=== PATIENT | female | born 1950 | race Caucasian/White ===

== ENCOUNTER → 2017-01-03 | Outpatient (CLI) | payer MEDICAID, BC ==
--- NOTE | 2017-01-03 22:31 | WWHP ---
DATE OF SERVICE: 01/03/2017 CHIEF COMPLAINT: The patient is here for her routine gynecologic exam and mammogram. HPI: This is a 66-year-old, G2, P2 with an LMP of 2000. She is without gynecologic complaints and denies any postmenopausal bleeding. 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 PAST MEDICAL HISTORY: Chronic hypertension, seasonal allergies. MEDICATIONS: 1. Losartan 25 mg daily. 2. Zyrtec p.r.n. 3. Viactiv calcium supplements two daily. 4. Vitamin D3 1000 units daily. ALLERGIES: No known drug allergies. PAST SURGICAL HISTORY: sections in 1974 and 1979, tubal ligation in 1980. Past OB history: 2 sections. 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 SOCIAL HISTORY: She denies tobacco and drug use and has about 2 alcoholic drinks per month. She has been since 1971. 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 FAMILY HISTORY: Grandmother has diabetes. There is no known family history of cancer of the breast, uterus, ovaries or colon. REVIEW OF SYSTEMS: Weight has been stable. She denies respiratory, cardiac, or GI problems. PHYSICAL EXAM: Blood pressure 141/84. Height 5 feet 1 inch. Weight 132 pounds. Temperature 98.0, pulse 76. This a well-developed, well-nourished white female who is alert and oriented x3 in no acute distress. HEENT is within normal limits. NECK: Supple without mass or thyromegaly. CHEST AND LUNGS: Clear to auscultation. HEART: Regular rate and rhythm. Breasts are without mass or discharge. There is central nipple inversion on the left side and she states it has been this way most of her life. Axillary exam is negative for adenopathy. BACK: Negative for CVA tenderness. ABDOMEN: Soft, nontender, without palpable masses. PELVIC EXAM: External genitalia reveals mild to moderate atrophy without lesions. Cervix and vagina reveal mild to moderate atrophy without lesions. There is no evidence of prolapse. The uterus is midposition, nongravid size and nontender. There are no palpable adnexal masses or tenderness. Rectovaginal exam negative for mass or tenderness and is negative for occult blood. EXTREMITIES: Nontender. IMPRESSION: A 66-year-old menopausal female with normal gynecologic exam. PLAN: 1. Pap smear was performed. 2. Self-breast examination was discussed. 3. Mammogram will be done today. 4. Osteoporosis prevention was discussed. I have recommended bone density testing and she would like to do this next year. 5. I have recommended screening colonoscopy based on her age and she states she will look into doing this. 6. She will return in one year.
--- NOTE | 2017-01-04 11:57 | MM ---
Reason for exam: screening (asymptomatic). Last mammogram was performed 5 years and 2 months ago. History: Patient is postmenopausal. Physical Findings: A clinical breast exam by your physician is recommended on an annual basis and results should be correlated with mammographic findings. MG 3D Screening Mammo W/Cad Bilateral CC and MLO view(s) were taken. Prior study comparison: October 21, 2011, bilateral digital screening mammo w/CAD. January 08, 2009, bilateral digital screening mammogram. The breast tissue is heterogeneously dense. This may lower the sensitivity of mammography. Finding: There are typically benign round calcifications. No significant changes in finding since October 21, 2011 and January 08, 2009. ASSESSMENT: Benign, BI-RAD 2 RECOMMENDATION: Routine screening mammogram of both breasts in 1 year.
--- NOTE | 2017-01-10 21:19 | LTR ---
January 10, 2017 RE: Justyna Burnett Emigdio Dear Dr. Osuna: I had the pleasure seeing your patient Justyna Burnett in the office on 01/03/2017. As you know she is a menopausal 66-year-old female who presented for her routine gynecologic exam. Her gynecologic exam was unremarkable. Her Pap smear was negative and her mammogram was benign. Thank you for allowing me to participate in the care of your patient. Please do not hesitate to call if you have any questions. Sincerely, TANI SEE
== END | disposition home or self-care (01) ==
LOC: WWCWWP 12:52
PROVIDERS: ATTEND Obstetrics & Gynecology
DX: Z12.31 Encounter for screening mammogram for malignant neoplasm of breast (principal)
CPT/HCPCS: 77063; G0202

== ENCOUNTER 2017-05-07 14:39 | Emergency (ER) | payer BC, MEDICAID, MEDICARE ==
[2017-05-07 15:06] VITALS: TEMP 98.1
[2017-05-07] MEDS ORDERED: HYDROmorphone 1 MG/ML 1 ML SYRINGE IM STA (15:58)
[2017-05-07] MEDS ORDERED: HYDROCORTISONE SUPPOSITORY 25 MG SUPP RECTAL STA (15:59)
--- NOTE | 2017-05-07 16:14 | ED ---
General Adult HPI - General Chief complaint: Recheck/Abnormal Lab/Rx Stated complaint: hemorroids Time Seen by Provider: 05/07/17 15:45 Source: patient, RN notes reviewed Mode of arrival: ambulatory Limitations: no limitations - History of Present Illness Initial comments: 67-year-old female presents to emergency Department chief complaint of hemorrhoid pain. Patient states that she had a hemorrhoid banded on Monday and today she woke up with pain. Patient states she is very uncomfortable. Patient states that she tried Preparation H and different things at home with no improvement to her symptoms. Patient states that she was concerned due to her pain so she thought that she should be evaluated. Patient states she hasn' t had any fever chills. Patient states there has been no blood today. Patient states he was concerned due to her symptoms so she came to be evaluated here and hopefully we can help her with the pain.Patient denies any recent fever, chills, shortness of breath, chest pain, back pain, abdominal pain, nausea vomiting, numbness or tingling, dysuria or hematuria, constipation or diarrhea, headaches or visual changes, or any other current symptoms. - Related Data Home Medications Medication Instructions Recorded Confirmed Cholecalciferol [Vitamin D3] 1,000 unit PO DAILY 05/07/17 05/07/17 Losartan [Cozaar] 50 mg PO DAILY 05/07/17 05/07/17 Multivitamins, Thera [Multivitamin 1 tab PO DAILY 05/07/17 05/07/17 (formulary)] Previous Rx's Medication Instructions Recorded Hydrocodone/Acetaminophen [Cross 1 each PO Q6HR PRN #20 tab 05/07/17 5-325] Allergies Allergy/AdvReac Type Severity Reaction Status Date / Time No Known Allergies Allergy Verified 05/07/17 16:10 Review of Systems ROS Statement: Those systems with pertinent positive or pertinent negative responses have been documented in the HPI. ROS Other: All systems not noted in ROS Statement are negative. Past Medical History Past Medical History: Hypertension Additional Past Medical History / Comment(s): hemorrhoids History of Any Multi-Drug Resistant Organisms: None Reported Past Surgical History: Section, Tubal Ligation Additional Past Surgical History / Comment(s): hemorrhoid banding Past Psychological History: No Psychological Hx Reported Smoking Status: Never smoker Past Alcohol Use History: Rare Past Drug Use History: None Reported General Exam Limitations: no limitations General appearance: alert, in no apparent distress Eye exam: Present: normal appearance, PERRL, EOMI. Absent: scleral icterus, conjunctival injection, periorbital swelling Neck exam: Present: normal inspection. Absent: tenderness, meningismus, lymphadenopathy Respiratory exam: Present: normal lung sounds bilaterally. Absent: respiratory distress, wheezes, rales, rhonchi, stridor Cardiovascular Exam: Present: regular rate, normal rhythm, normal heart sounds. Absent: systolic murmur, diastolic murmur, rubs, gallop, clicks Rectal exam: Present: hemorrhoids (It is fluctuant), tenderness Neurological exam: Present: alert, oriented X3 Psychiatric exam: Present: normal affect, normal mood Skin exam: Present: warm, dry, intact, normal color. Absent: rash Course Vital Signs 05/07/17 15:04 Temperature 98.1 F Pulse Rate 88 Respiratory 20 Rate Blood Pressure 178/77 O2 Sat by Pulse 99 Oximetry - Reevaluation(s) Reevaluation #1: 05/07/17 17:13 Patient reassessment states she is feeling much better. Medical Decision Making - Medical Decision Making 67-year-old male presents with chief complaint of hemorrhoid. This time we discussed that we will the patient pain medication for home. We discussed follow-up in the office with the surgeon. We discussed return parameters and patient's questions. She stated that she understood she is in agreement plan. She will be discharged home. Disposition Clinical Impression: Acute hemorrhoid Disposition: HOME SELF-CARE Condition: Stable Instructions: Hemorrhoids (ED) Additional Instructions: Please use medication as discussed. Please follow up with family doctor if symptoms have not improved over the next two days. Please return to the emergency room if your symptoms increase or worsen or for any other concerns. Prescriptions: Hydrocodone/Acetaminophen [Cross 5-325] 1 each PO Q6HR PRN #20 tab PRN Reason: Pain Referrals: Eulogio Osuna DO [Primary Care Provider] - 1-2 days Time of Disposition: 17:13
[2017-05-07] MEDS ORDERED: ONDANSETRON ODT 4 MG TAB PO STA ×2 (17:28→18:43)
[2017-05-07 19:21] VITALS: BP 148/71; PULSE 66; RESP 18
== END 2017-05-07 19:21 | disposition home or self-care (01) ==
LOC: EC 14:39
DX: K64.9 Unspecified hemorrhoids (principal); I10 Essential (primary) hypertension; Z79.899 Other long term (current) drug therapy
CPT/HCPCS: 99282; 96372; J1170

== ENCOUNTER → 2017-08-02 | Outpatient (CLI) | payer MEDICARE ==
--- NOTE | 2017-08-02 15:05 | CT ---
EXAMINATION TYPE: CT abdomen pelvis wo con DATE OF EXAM: 08/02/2017 COMPARISON: NONE HISTORY: 67-year-old female Right lower quadrant abdominal pain CT DLP: 631 mGycm. Automated exposure control for dose reduction was used. TECHNIQUE: Contiguous axial scanning of the abdomen and pelvis without IV contrast. Coronal and sagit idalia reconstructions performed. FINDINGS: The heart is normal size without pericardial effusion. Lung bases clear without pleural effusion. Noncontrast appearance of the liver shows a 9 mm hypodense lesion inferior right hepatic lobe, axial image 29, probable tiny cyst. Gallbladder, adrenal glands, left kidney, spleen, pancreas show no gross anomaly by noncontrast CT. There is a punctate 2 mm calculus at the midpole right kidney. No hydronephrosis on either side. Normal appendix is visualized. There is moderate stool burden. No pericolonic inflammatory change see n. No evident mesenteric or retroperitoneal lymphadenopathy. No dilated small bowel, free fluid, or free air. Very mild circumferential bladder wall thickening. Bladder is partially urine distended. Uterus is vi sualized. Ovaries not clearly delineated from clustered bowel loops. No abnormal fluid collection in the pelvis or evident pelvic lymphadenopathy. Bones: Degenerative disc disease mid to lower lumbar spine and facet arthropathy with trace grade 1 a nterolisthesis at L2-L5 levels. No osseous destructive process. IMPRESSION: 1. Mild circumferential bladder wall thickening. Correlate to exclude cystitis. 2. Punctate nonobstructive 2 mm right renal calculus. No hydronephrosis on either side. 3. Moderate stool burden. Normal appendix.
== END | disposition home or self-care (01) ==
LOC: RADCTMAIN 14:29
PROVIDERS: ATTEND Family Medicine
DX: N20.0 Calculus of kidney (principal); N32.89 Other specified disorders of bladder
CPT/HCPCS: 74176

== ENCOUNTER → 2017-09-29 | Outpatient (CLI) | payer MEDICARE ==
--- NOTE | 2017-09-30 09:42 | MR ---
EXAMINATION TYPE: MR brain wo con DATE OF EXAM: 09/29/2017 COMPARISON: NONE HISTORY: Tremors TECHNIQUE: Multiplanar, multisequence images of the brain and brainstem is performed without intravenous contras t. FINDINGS: Diffusion weighted images demonstrate no evidence of a recent infarct or other diffusion ab normality. Old lacunar injury is seen within the external capsule on the right measuring 1 cm. Few fo ci of subcortical and pericallosal T2/FLAIR hyperintensity are seen within the frontal lobes and righ t parietal lobe. There is no extra-axial fluid collection or significant white matter signal abnormal ity. The ventricular system and cisternal spaces are normal in size and appearance. The brain volum e is age appropriate. Midline structures demonstrate normal morphology. The craniocervical junction appears within normal limits. The globes are intact. Minimal mucosal thickening is seen within the ethmoid sinuses. Remaini ng paranasal sinuses are well aerated. Major intracranial flow voids are maintained. IMPRESSION: 1. No acute infarct or mass effect. 2. 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 3. Although there is mild cerebellar atrophy, this is within normal limits for the patient's age. No age disproportionate atrophy is seen. 3. Minimal ethmoidal mucosal thickening.
== END | disposition home or self-care (01) ==
LOC: RADMRIMAIN 13:29
PROVIDERS: ATTEND Psychiatry & Neurology Neurology
DX: G31.9 Degenerative disease of nervous system, unspecified (principal); R90.82 White matter disease, unspecified
CPT/HCPCS: 70551

== ENCOUNTER 2017-12-27 08:34 | Day surgery (SDC) | payer MEDICARE ==
[2017-12-20 08:44] VITALS: BMI 21.7
--- NOTE | 2017-12-26 14:35 | HP ---
HISTORY AND PHYSICAL DATE OF SERVICE: 12/27/2017 Justyna Burnett is a 67-year-old patient seen progressive right shoulder pain. Treatment options discussed. She elected to proceed with arthroscopy. Consent was obtained. Medical clearance by Dr. Eulogio Osuna. PAST MEDICAL HISTORY: Hypertension. PAST SURGICAL HISTORY: Tubal ligation, section, colonoscopy. DAILY MEDICATIONS: 1. Aleve. 2. Losartan. 3. Xanax. ALLERGIES: None. SOCIAL HISTORY: Patient denies tobacco use. PHYSICAL EVALUATION OF RIGHT SHOULDER: Flexion is 150 degrees, abduction is 140 degrees, external rotation is 50 degrees with pain and weakness. Tenderness along the anterolateral rotator cuff and the anterolateral acromion. Impingement positive 110. Drop-arm sign positive. Distal neurovascular exam intact. Right shoulder radiographs reveal cystic changes of the tuberosity. A right shoulder MRI revealed complete rotator cuff tear. IMPRESSION: 1. Right shoulder impingement with rotator cuff tear. 2. Hypertension. PLAN: Right shoulder arthroscopy with subacromial decompression, probable arthroscopic rotator cuff repair and debridement. MMODL / IJN: [id number] /
[~2017-12-27 08:34] MED LIST: DEXAMETHASONE SOD PHOSPHATE 10 MG/ML 1 ML VIAL IV ONE; HYDROmorphone 0.5 MG/0.5 ML SYRINGE IVP PRN; LACTATED RINGERS 1,000 ML IV SCH; LIDOCAINE 1% 20 ML VIAL (10MG/ML) FOR IV START INTRADERMA PRN; MIDAZOLAM 2 MG/2 ML VIAL IV PRN; ONDANSETRON 4 MG/2 ML VIAL IVP ONE; ceFAZolin 1,000 MG in DEXTROSE/WATER 1 50ML.BAG IV ONE
[2017-12-27 08:54] VITALS: RESP 16
[2017-12-27] MEDS ORDERED: fentaNYL (PF) 50 MCG/ML 2 ML AMP IV ONE (09:41)
[2017-12-27] MEDS ORDERED: SUCCINYLCHOLINE CHLORIDE 100 MG/5 ML SYR IV ONE (10:01)
[2017-12-27] MEDS ORDERED: LIDOCAINE 2%-EPI 1:100,000 20 ML VIAL ONE (10:01)
[2017-12-27] MEDS ORDERED: PROPOFOL 10 MG/ML 20 ML VIAL IV ONE (10:01)
[2017-12-27] MEDS ORDERED: LIDOCAINE 1% INJ 10MG/ML (20 ML MDV) ONE (10:01)
[2017-12-27] MEDS ORDERED: ROPIVACAINE 5 MG/ML 30 ML VIAL ONE ×2 (10:01)
[2017-12-27] MEDS ORDERED: fentaNYL (PF) 50 MCG/ML 2 ML AMP ONE (10:01)
[2017-12-27] MEDS ORDERED: LACTATED RINGERS 1,000 ML IV ONE (11:51)
[2017-12-27 12:21] VITALS: TEMP 97
--- NOTE | 2017-12-27 12:24 | P.OP ---
Date of Procedure: 12/27/17 Preoperative Diagnosis: Right shoulder impingement Postoperative Diagnosis: 1. Right shoulder rotator cuff tear 2. Right shoulder impingement 3. Right shoulder partial biceps tendon tear 4. Right shoulder superficial labral Procedure(s) Performed: 1. Right shoulder arthroscopic rotator cuff repair 2. Right shoulder arthroscopic subacromial decompression 3. Right shoulder arthroscopic biceps tenotomy 4. Right shoulder arthroscopic debridement labral tear Implants: 4-peek anchors Anesthesia: GETA, regional (Interscalene block) Surgeon: Milo Bravo Clerical Dentist Assistant #1: James Pearce Estimated Blood Loss (ml): 15 Pathology: none sent Condition: stable Disposition: PACU Indications for Procedure: 67-year-old patient seen with progressive right shoulder pain. After treatment options were discussed, she elected to proceed with arthroscopy. Operative Findings: See description of procedure Description of Procedure: Patient underwent a shoulder block by department of anesthesia. The patient was then taken to the operative suite. The patient underwent a general anesthetic by the department of anesthesia. The patient was placed into a lateral position and secured. There was appropriate padding of the bony prominence. Right shoulder was then prepped and draped in normal sterile orthopedic fashion. We placed the extremity in 10 pounds of longitudinal traction. A posterior incision was now made for a posterior working portal site. The trocar and cannula were inserted into the glenohumeral joint. Arthroscopy was initiated. Spinal needle was now inserted anteriorly, to ascertain the anterior working portal site. An incision was now made in that area, a trocar was inserted followed by a probe. There was superficial tearing of the superior labrum. Partial tearing and hyperemia long head biceps tendon. The remaining labrum was stable. There were grade 1 chondromalacia changes of glenohumeral joint with no osteochondral tears present. There was a very large rotator cuff tear visualized from glenohumeral side. I debrided the labral tear down to stable tissue. I performed an arthroscopic biceps tenotomy. Instruments were now removed from the glenohumeral joint. Utilizing the posterior working portal site, the trocar and cannula were inserted into the subacromial space. Arthroscopy initiated. I made an incision 2 fingerbreadths lateral to the acromion. I introduced my trocar followed by my ArthroCare ablator. I now began ablating thick subacromial bursal tissue, which exposed the undersurface of the anterior acromion. This was diminished subacromial space. There was a very prominent anterior acromion. A motorized bur was introduced and a subacromial decompression was performed. I also excised some osteophytes off the inferior aspect of the distal clavicle. The AC joint was visualized and noted to be moderately arthritic. I did not think enough toward a Jud procedure. I now turned my attention to the rotator cuff tendon tear. There was a very large tear measuring about 4 cm. The posterior component had a intrasubstance tear. I could just barely breast puller the footprint. I performed a release and I was able breast puller the footprint. I repaired the intrasubstance tear posteriorly with 3 interrupted sutures. I now created an assessory portal site off the lateral acromion. I now introduced 2 anchors medially with 2 sutures each. I passed all 8 suture through good bites of rotator cuff tendon. I put an additional suture posteriorly. I crisscrossed the sutures pulled over the footprint and now introduced 2 lateral anchors compressing the tendon very nicely along the footprint. Residual suture limbs were clipped. We had a good stable repair. 1 mL of UCT was injected intra-articular. Instruments now removed from the portal sites. All portal sites were approximated with nylon suture. Sterile dressings were applied followed by a shoulder immobilizer. Laz WALLACE assisted with the procedure. The patient was awakened, transferred to a bed, and taken to recovery in stable condition.
[2017-12-27 13:26] VITALS: PULSE 69
[2017-12-27 14:01] VITALS: BP 139/77
== END 2017-12-27 14:49 | disposition home or self-care (01) ==
LOC: OR 08:34
PROVIDERS: ATTEND Orthopaedic Surgery
DX: M75.101 Unspecified rotator cuff tear or rupture of right shoulder, not specified as traumatic (principal); M25.811 Other specified joint disorders, right shoulder; S46.111A Strain of muscle, fascia and tendon of long head of biceps, right arm, initial encounter; S43.401A Unspecified sprain of right shoulder joint, initial encounter; X58.XXXA Exposure to other specified factors, initial encounter; M25.711 Osteophyte, right shoulder; I10 Essential (primary) hypertension; Z79.1 Long term (current) use of non-steroidal anti-inflammatories (NSAID); Z79.899 Other long term (current) drug therapy; Z88.5 Allergy status to narcotic agent
CPT/HCPCS: 64415; 29826; 29827; C1713 ×2; C1765; J2250; J1100; J2405; J2001; J3010; J0690; J2795; J0330; J2704

== ENCOUNTER → 2019-02-12 | Outpatient (CLI) | payer MEDICARE ==
[2019-02-12 14:09] VITALS: BP 151/89; PULSE 71; RESP 16; TEMP 97.8; BMI 26.0
--- NOTE | 2019-02-12 14:42 | P.HPOB ---
History of Present Illness H&P Date: 02/12/19 Chief Complaint: The patient is here for her routine gynecologic exam and ma mmogram. This is a 68-year-old G to PII within LMP of 2000. The patient is without gynecologic complaints and denies any postmenopausal bleeding. Review of Systems She is getting 6 pounds over the last 2 years. She denies respiratory, cardiac and G.I. problems. She denies maltreatment or problems with falling. : she denies any significant problems with urinary leakage. Past Medical History Past Medical History: Hypertension Additional Past Medical History / Comment(s): hemorrhoids. Seasonal allergies. 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 History of Any Multi-Drug Resistant Organisms: None Reported Past Surgical History: Section, Tubal Ligation Additional Past Surgical History / Comment(s): hemorrhoid banding. C-sections x2. Right rotator cuff surgery 2018. Colonoscopy 2017(next 5yrs). 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 - Past Family History Mother Family Medical History: No Reported History Additional Family Medical History / Comment(s): Grandmother has diabetes. Medications and Allergies Home Medications Medication Instructions Recorded Confirmed Type Cholecalciferol [Vitamin D3] 1,000 unit PO DAILY 05/07/17 12/27/17 History Losartan [Cozaar] 50 mg PO DAILY 05/07/17 02/12/19 History Multivitamins, Thera [Multivitamin 1 tab PO DAILY 05/07/17 12/27/17 History (formulary)] Acetaminophen Tab [Tylenol Tab] 650 mg PO Q6H PRN 08/03/17 12/27/17 History Calcium Carb/Vitamin D3/Vit K1 1 each PO DAILY 08/03/17 12/27/17 History [Viactiv Soft Chew Tablet] Escitalopram Oxalate [Lexapro] 10 mg PO DAILY 12/20/17 02/12/19 History Allergies Allergy/AdvReac Type Severity Reaction Status Date / Time codeine AdvReac Vomiting Verified 02/12/19 13:52 hydromorphone [From Dilaudid] AdvReac Vomiting Verified 02/12/19 13:52 Exam Vital Signs Temp Pulse Resp BP Pulse Ox 02/12/19 13:55 97.8 F 71 16 151/89 99 Intake and Output 02/11/19 02/12/19 02/12/19 22:59 06:59 14:59 Other: Weight 62.596 kg Height 5'1", weight 138 pounds, BMI 26.1. This is a well-developed well-nourished white female who is alert and oriented times 3 in no acute distress. HEENT: Within normal limits. NECK: Supple without mass or thyromegaly. CHEST AND LUNGS: Clear to auscultation. HEART: Regular rate and rhythm. BREASTS: Are without mass or discharge. Right nipple is flat to the surface, the left nipple has central inversion. The patient states the nipples have been this way for many years. AXILLARY EXAM: Negative for adenopathy. BACK: Negative for CVA tenderness. ABDOMEN: Soft, nontender, without palpable masses. PELVIC EXAM: Normal external genitalia with mild to moderate atrophy. Cervix and vagina appear normal with mild to moderate atrophy. The service is somewhat stenotic secondary to atrophy. There is no unusual discharge. There is no evidence of prolapse. The uterus is midposition, nongravid size and nontender. There are no palpable adnexal masses or tenderness. RECTAL EXAM: rectovaginal exam is negative for mass or tenderness and is negative for occult blood. EXTREMITIES: Nontender. IMPRESSION: 1. 68 year old menopausal female with normal gynecologic exam. PLAN: 1. Pap smear was performed. 2. Self breast awareness was discussed with the patient. 3. Screening mammogram will be done today. 4. Osteoporosis prevention was discussed. I have stressed the importance of adequate calcium, vitamin D and regular exercise. Recommended amounts of calcium and vitamin D were also discussed. 5. She did receive a flu shot last fall. 6.She was advised to return in one year for her annual well woman exam.
--- NOTE | 2019-02-14 09:58 | MM ---
Reason for exam: screening (asymptomatic). Last mammogram was performed 2 years and 1 month ago. History: Patient is postmenopausal. Physical Findings: A clinical breast exam by your physician is recommended on an annual basis and results should be correlated with mammographic findings. MG 3D Screening Mammo W/Cad Bilateral CC and MLO view(s) were taken. Prior study comparison: January 03, 2017, bilateral MG 3d screening mammo w/cad. October 21, 2011, bilateral digital screening mammo w/CAD. The breast tissue is heterogeneously dense. This may lower the sensitivity of mammography. No significant changes when compared with prior studies. ASSESSMENT: Negative, BI-RAD 1 RECOMMENDATION: Routine screening mammogram of both breasts in 1 year.
== END | disposition home or self-care (01) ==
LOC: WWCWWP 13:44
PROVIDERS: ATTEND Obstetrics & Gynecology
DX: Z12.31 Encounter for screening mammogram for malignant neoplasm of breast (principal)
CPT/HCPCS: 77063; 77067

== ENCOUNTER 2019-12-22 23:35 | Inpatient (IN) | payer MEDICARE ==
[2019-12-23] MEDS ORDERED: SODIUM CHLORIDE 0.9% 1,000 ML IV STA
[2019-12-23] MEDS ORDERED: LORazepam 2 MG/ML INJ IV STA (00:02)
--- NOTE | 2019-12-23 00:15 | ED ---
General Adult HPI - General Chief complaint: Recheck/Abnormal Lab/Rx Stated complaint: poss med reaction Time Seen by Provider: 12/22/19 23:46 Source: patient, family, RN notes reviewed, old records reviewed Mode of arrival: ambulatory Limitations: no limitations - History of Present Illness Initial comments: 69-year-old female presents with tremor, anxiety. She has been started on Celexa 20 mg 4 days prior. Yesterday she developed a tremor and sensitive anxiousness. Denies chest pain or dyspnea. She's had some mild nausea without vomiting. No fever or chills. No abdominal pain. She has been taking 20 mg as prescribed for the past 4 days. She is on hydrochlorothiazide and losartan with no other medications currently. Tremor is predominantly in the bilateral upper extremities. - Related Data Home Medications Medication Instructions Recorded Confirmed Cholecalciferol [Vitamin D3] 1,000 unit PO DAILY 05/07/17 12/27/17 Losartan [Cozaar] 50 mg PO DAILY 05/07/17 02/12/19 Multivitamins, Thera [Multivitamin 1 tab PO DAILY 05/07/17 12/27/17 (formulary)] Acetaminophen Tab [Tylenol Tab] 650 mg PO Q6H PRN 08/03/17 12/27/17 Calcium Carb/Vitamin D3/Vit K1 1 each PO DAILY 08/03/17 12/27/17 [Viactiv Soft Chew Tablet] Escitalopram Oxalate [Lexapro] 10 mg PO DAILY 12/20/17 02/12/19 Allergies Allergy/AdvReac Type Severity Reaction Status Date / Time codeine AdvReac Vomiting Verified 12/22/19 23:43 hydromorphone [From Dilaudid] AdvReac Vomiting Verified 12/22/19 23:43 Review of Systems ROS Statement: Those systems with pertinent positive or pertinent negative responses have been documented in the HPI. ROS Other: All systems not noted in ROS Statement are negative. Past Medical History Past Medical History: Hypertension Additional Past Medical History / Comment(s): hemorrhoids. Seasonal allergies. 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 History of Any Multi-Drug Resistant Organisms: None Reported Past Surgical History: Section, Tubal Ligation Additional Past Surgical History / Comment(s): hemorrhoid banding. C-sections x2. Right rotator cuff surgery 2018. Colonoscopy 2017(next 5yrs). Past Anesthesia/Blood Transfusion Reactions: No Reported Reaction Additional Past Anesthesia/Blood Transfusion Reaction / Comment(s): motion sickness as child Past Psychological History: Anxiety Smoking Status: Never smoker Past Alcohol Use History: Occasional Past Drug Use History: None Reported - Past Family History Mother Family Medical History: No Reported History Additional Family Medical History / Comment(s): Grandmother has diabetes. General Exam Limitations: no limitations General appearance: alert, in no apparent distress, anxious Head exam: Present: atraumatic, normocephalic Eye exam: Present: normal appearance, PERRL, EOMI ENT exam: Present: normal exam Neck exam: Present: normal inspection. Absent: tenderness, meningismus Respiratory exam: Present: normal lung sounds bilaterally. Absent: respiratory distress, wheezes Cardiovascular Exam: Present: regular rate, normal rhythm GI/Abdominal exam: Present: soft. Absent: distended, tenderness, guarding Extremities exam: Present: normal inspection, normal capillary refill. Absent: pedal edema Neurological exam: Present: alert, oriented X3, CN II-XII intact, reflexes normal, other (No rigidity). Absent: motor sensory deficit Psychiatric exam: Present: anxious. Absent: depressed, suicidal ideation Skin exam: Present: warm, dry, intact. Absent: cyanosis, diaphoretic Course Vital Signs 12/22/19 23:40 Temperature 97.6 F Pulse Rate 78 Respiratory 20 Rate Blood Pressure 155/91 O2 Sat by Pulse 99 Oximetry EKG Findings - EKG Comments: EKG Findings:: EKG: Normal sinus rhythm, possible left atrial enlargement, rate of 72, MI interval 180, QRS duration 92, QTC 418, no ST segment elevation or depression Medical Decision Making - Medical Decision Making 69-year-old female presenting with tremor, recent initiation of antidepressant medication. Patient is noted to be quite tremulous bilateral upper extremities. She has EKG showing sinus rhythm with no ST segment elevation. CBC is unrem arkable, she has a sodium of 121 with no history of hyponatremia. Chloride is 85. Patient has hyperbilirubinemia at 2.3. She does not have any abdominal pain, I will obtain an ultrasound these results are pending. Patient will be admitted for monitoring of sodium, sodium replacement. Her thiazide diuretic and Celexa will both be held - Lab Data Result diagrams: 12/23/19 00:20 12/23/19 00:20 Lab Results 12/23/19 12/23/19 12/23/19 Range/Units 00:20 00:20 00:20 WBC 9.0 (3.8-10.6) k/uL RBC 4.80 (3.80-5.40) m/uL Hgb 14.0 (11.4-16.0) gm/dL Hct 40.9 (34.0-46.0) % MCV 85.3 (80.0-100.0) fL MCH 29.1 (25.0-35.0) pg MCHC 34.1 (31.0-37.0) g/dL RDW 11.8 (11.5-15.5) % Plt Count 504 H (150-450) k/uL Neutrophils % 66 % Lymphocytes % 20 % Monocytes % 7 % Eosinophils % 3 % Basophils % 2 % Neutrophils # 5.9 (1.3-7.7) k/uL Lymphocytes # 1.8 (1.0-4.8) k/uL Monocytes # 0.6 (0-1.0) k/uL Eosinophils # 0.3 (0-0.7) k/uL Basophils # 0.2 (0-0.2) k/uL Sodium 121 L (137-145) mmol/L Potassium 3.6 (3.5-5.1) mmol/L Chloride 85 L (98-107) mmol/L Carbon Dioxide 22 (22-30) mmol/L Anion Gap 14 mmol/L BUN 13 (7-17) mg/dL Creatinine 0.64 (0.52-1.04) mg/dL Est GFR (CKD-EPI)AfAm >90 (>60 ml/min/1.73 sqM) Est GFR (CKD-EPI)NonAf >90 (>60 ml/min/1.73 sqM) Glucose 101 H (74-99) mg/dL Calcium 10.0 (8.4-10.2) mg/dL Total Bilirubin 2.3 H (0.2-1.3) mg/dL AST 37 H (14-36) U/L ALT 21 (4-34) U/L Alkaline Phosphatase 100 (38-126) U/L Total Protein 8.3 H (6.3-8.2) g/dL Albumin 5.2 H (3.5-5.0) g/dL Urine Color Yellow Urine Appearance Clear (Clear) Urine pH 6.0 (5.0-8.0) Ur Specific [place] 1.015 (1.001-1.035) Urine Protein 1+ H (Negative) Urine Glucose (UA) Negative (Negative) Urine Ketones Trace H (Negative) Urine Blood Moderate H (Negative) Urine Nitrite Negative (Negative) Urine Bilirubin Negative (Negative) Urine Urobilinogen <2.0 (<2.0) mg/dL Ur Leukocyte Esterase Trace H (Negative) Urine RBC 6 H (0-5) /hpf Urine WBC 5 (0-5) /hpf Ur Squamous Epith Cells 1 (0-4) /hpf Hyaline Casts 175 H (0-2) /lpf Granular Casts 3 (0) /lpf Urine Mucus Few H (None) /hpf Salicylates <1.0 mg/dL Urine Opiates Screen Not Detected (NotDetected) Ur Oxycodone Screen Not Detected (NotDetected) Urine Methadone Screen Not Detected (NotDetected) Ur Propoxyphene Screen Not Detected (NotDetected) Acetaminophen <10.0 ug/mL Ur Barbiturates Screen Not Detected (NotDetected) U Tricyclic Antidepress Not Detected (NotDetected) Ur Phencyclidine Scrn Not Detected (NotDetected) Ur Amphetamines Screen Not Detected (NotDetected) U Methamphetamines Scrn Not Detected (NotDetected) U Benzodiazepines Scrn Detected H (NotDetected) Urine Cocaine Screen Not Detected (NotDetected) U Marijuana (THC) Screen Not Detected (NotDetected) Serum Alcohol <10 mg/dL Disposition Clinical Impression: Hyponatremia Disposition: ADMITTED IP TO THIS [facility] Condition: Stable Is patient prescribed a controlled substance at d/c from ED?: No Referrals: Eulogio Osuna DO [Primary Care Provider] - 1-2 days Decision to Admit Reason: Admit from EC Decision Date: 12/23/19 Decision Time: 01:07
[2019-12-23 00:30] LABS: Basophils # (A) 0.2 k/uL (0-0.2); Basophils % (A) 2 %; Eosinophils # (A) 0.3 k/uL (0-0.7); Eosinophils % (A) 3 %; HCT 40.9 % (34.0-46.0); Lymphocytes # (A) 1.8 k/uL (1.0-4.8); Lymphocytes % (A) 20 %; MCH 29.1 pg (25.0-35.0); MCHC 34.1 g/dL (31.0-37.0); MCV 85.3 fL (80.0-100.0); Mean Platelet Volume 6.3; Monocytes # (A) 0.6 k/uL (0-1.0); Monocytes % (A) 7 %; Neutrophils # (A) 5.9 k/uL (1.3-7.7); Neutrophils % (A) 66 %; Platelet Count 504 k/uL (150-450); RDW 11.8 % (11.5-15.5)
[2019-12-23 00:31] LABS: Appearance,Urine Clear (Clear); Bilirubin,Urine Negative (Negative); Blood,Urine Moderate (Negative); Color,Urine Yellow; Glucose,Urine (UA) Negative (Negative); Granular Casts,Urine 3 /lpf (0); Hyaline Casts,Urine 175 /lpf (0-2); Ketones,Urine Trace (Negative); Leukocyte Esterase,Urine Trace (Negative); Mucus,Urine Few /hpf; Nitrite,Urine Negative (Negative); Protein,Urine 1+ (Negative); RBC,Urine 6 /hpf (0-5); Specific Gravity,Urine 1.015 (1.001-1.035); Squamous Epithelial Cell,Urine 1 /hpf (0-4); Urobilinogen,Urine <2.0 mg/dL (<2.0); WBC,Urine 5 /hpf (0-5)
[2019-12-23 00:37] LABS: ALT 21 U/L (4-34); AST 37 U/L (14-36); Acetaminophen <10.0 ug/mL; African American GFR (CKD) >90 (>60 ml/min/1.73 sqM); Albumin 5.2 g/dL (3.5-5.0); Alcohol <10 mg/dL; Alkaline Phosphatase 100 U/L (38-126); Anion Gap 14 mmol/L; Blood Urea Nitrogen 13 mg/dL (7-17); Carbon Dioxide 22 mmol/L (22-30); Chloride 85 mmol/L (98-107); Glucose 101 mg/dL (74-99); Non-African American GFR(CKD) >90 (>60 ml/min/1.73 sqM); Potassium 3.6 mmol/L (3.5-5.1); Salicylate <1.0 mg/dL; Sodium 121 mmol/L (137-145); Total Bilirubin 2.3 mg/dL (0.2-1.3); Total Protein 8.3 g/dL (6.3-8.2)
[2019-12-23 00:38] LABS: Amphetamine Screen,Urine Not Detected (NotDetected); Barbiturate Screen,Urine Not Detected (NotDetected); Benzodiazepines Screen,Urine Detected (NotDetected); Cocaine Screen,Urine Not Detected (NotDetected); Methadone Screen, Urine Not Detected (NotDetected); Opiate Screen,Urine Not Detected (NotDetected); Oxycodone Screen, Urine Not Detected (NotDetected); Phencyclidine Screen,Urine Not Detected (NotDetected); Tricyclic Antidepressant,Urine Not Detected (NotDetected); Urn Cannabinoid Scrn Not Detected (NotDetected)
[2019-12-23] MEDS ORDERED: SODIUM CHLORIDE 0.9% 500 ML 500 ML IV ONE (00:55)
[2019-12-23] MEDS ORDERED: LORazepam 2 MG/ML INJ IV PRN (01:02)
[2019-12-23] MEDS ORDERED: NALOXONE 0.4 MG/ML 1 ML VIAL IV PRN (01:02)
[2019-12-23] MEDS ORDERED: ACETAMINOPHEN TAB 325 MG TAB PO PRN (01:02)
--- NOTE | 2019-12-23 01:31 | US ---
EXAMINATION TYPE: US gallbladder DATE OF EXAM: 12/23/2019 COMPARISON: CT 2017 CLINICAL HISTORY: Hyperbilirubinemia. EXAM MEASUREMENTS: Liver Length: 13.4 cm Gallbladder Wall: 0.2 cm CBD: 0.5 cm Right Kidney: 11.0 x 4.4 x 4.8 cm Pancreas: visualized portions wnl Liver: small cyst measures 1.0 x 0.6 x 1.0 cm Gallbladder: No stones seen Evidence for sonographic Oakley's sign: No CBD: wnl Right Kidney: No hydronephrosis or masses seen IMPRESSION: Negative exam. No gallstones or dilated ducts.
[2019-12-23] MEDS: SODIUM CHLORIDE 0.9% 1,000 ML IV SCH ×2 (01:41→21:00)
[2019-12-23 06:10] LABS: Glucose,Whole Blood 106 mg/dL (75-99)
[2019-12-23] MEDS ORDERED: LOSARTAN 50 MG TAB PO SCH (09:00)
[2019-12-23 10:57] LABS: Basophils # (A) 0.1 k/uL (0-0.2); Basophils % (A) 1 %; Eosinophils # (A) 0.1 k/uL (0-0.7); Eosinophils % (A) 1 %; HCT 36.1 % (34.0-46.0); HGB 12.3 gm/dL (11.4-16.0); Lymphocytes # (A) 1.2 k/uL (1.0-4.8); Lymphocytes % (A) 18 %; MCHC 34.1 g/dL (31.0-37.0); MCV 88.1 fL (80.0-100.0); Mean Platelet Volume 6.2; Monocytes # (A) 0.6 k/uL (0-1.0); Monocytes % (A) 9 %; Neutrophils # (A) 4.4 k/uL (1.3-7.7); Neutrophils % (A) 69 %; Platelet Count 383 k/uL (150-450); RDW 11.8 % (11.5-15.5); WBC 6.4 k/uL (3.8-10.6)
[2019-12-23 11:06] LABS: African American GFR (CKD) >90 (>60 ml/min/1.73 sqM); Anion Gap 11 mmol/L; Blood Urea Nitrogen 13 mg/dL (7-17); Carbon Dioxide 23 mmol/L (22-30); Chloride 89 mmol/L (98-107); Glucose 93 mg/dL (74-99); Non-African American GFR(CKD) 86 (>60 ml/min/1.73 sqM); Sodium 123 mmol/L (137-145)
[2019-12-23 18:11] LABS: African American GFR (CKD) >90 (>60 ml/min/1.73 sqM); Anion Gap 11 mmol/L; Blood Urea Nitrogen 10 mg/dL (7-17); Calcium 9.2 mg/dL (8.4-10.2); Carbon Dioxide 23 mmol/L (22-30); Chloride 92 mmol/L (98-107); Glucose 103 mg/dL (74-99); Non-African American GFR(CKD) >90 (>60 ml/min/1.73 sqM); Potassium 3.8 mmol/L (3.5-5.1); Sodium 126 mmol/L (137-145)
--- NOTE | 2019-12-23 20:47 | P.HPIM ---
History of Present Illness H&P Date: 12/23/19 This is 69-year-old white female was admitted to through the emergency department with symptomatic hyponatremia she states for the past few days she has been having tremors and not feeling herself. This corresponds with her being very anxious she was initially seen in my office last week and placed on Celexa she states Catherine Hairis too much for her and causing this hyponatremia. I told her that I didn't think this was due to the Celexa and that her anxiety is being really severe over the past several months. She is also on hydrochlorothiazide and losartan both can contribute to hyponatremia and also on copious water intake. She is currently getting 0.9 normal saline for replacement. She denies any fever cough chills she denies any chest pain she denies any shortness of breath she denies any frequency urination or diabetes. She denies any kidney disease. Review of Systems GENERAL: Patient denies fever. Denies chills. EYES: Denies blurred vision. Denies vision changes. Denies eye pain. EARS, NOSE, MOUTH, & THROAT: Denies headache. Denies sore throat. Denies ear pain. RESPIRATORY: Denies cough. Denies shortness of breath. Denies sputum production. Denies hemoptysis. CARDIOVASCULAR: Denies chest pain or pressure. Denies palpitations. Denies arrhythmias. GASTROINTESTINAL: Denies abdominal pain. Denies diarrhea. Denies constipation. Denies nausea. Denies vomiting. Denies heartburn. Denies blood in the stool. GENITOURINARY: Denies urinary frequency. Denies burning. Denies dysuria. Denies cloudy urine. Denies blood in the urine. MUSCULOSKELETAL: Denies myalgias. Denies joint swelling. Denies decreased range of motion beyond patients baseline. INTEGUMENTARY: Denies pruitis. Denies rash. PSYCHIATRIC: Denies suicidal or homicial ideations. ENDOCRINE: Denies weight change. Denies polydipsia. Denies polyuria. HEMATOLOGIC: Denies bleeding disorders. Past Medical History Past Medical History: Hypertension Additional Past Medical History / Comment(s): hemorrhoids. Seasonal allergies. 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 History of Any Multi-Drug Resistant Organisms: None Reported Past Surgical History: Section, Tubal Ligation Additional Past Surgical History / Comment(s): hemorrhoid banding. C-sections x2. Right rotator cuff surgery 2018. Colonoscopy 2017(next 5yrs). Past Anesthesia/Blood Transfusion Reactions: No Reported Reaction Additional Past Anesthesia/Blood Transfusion Reaction / Comment(s): motion sickness as child Past Psychological History: Anxiety Smoking Status: Never smoker Past Alcohol Use History: Occasional Past Drug Use History: None Reported - Past Family History Mother Family Medical History: No Reported History Additional Family Medical History / Comment(s): Grandmother has diabetes. Medications and Allergies Home Medications Medication Instructions Recorded Confirmed Type Cholecalciferol [Vitamin D3] 1,000 unit PO DAILY 05/07/17 12/23/19 History Multivitamins, Thera [Multivitamin 1 tab PO DAILY 05/07/17 12/23/19 History (formulary)] Calcium Carb/Vitamin D3/Vit K1 1 tab PO AC-BID@0700,1300 08/03/17 12/23/19 History [Viactiv Soft Chew Tablet] Cetirizine HCl [Zyrtec] 10 mg PO DAILY 12/23/19 12/23/19 History Hydrochlorothiazide 25 mg PO DAILY 12/23/19 12/23/19 History Losartan Potassium 100 mg PO DAILY 12/23/19 12/23/19 History Naproxen Sodium [Aleve] 220 mg PO BID PRN 12/23/19 12/23/19 History Allergies Allergy/AdvReac Type Severity Reaction Status Date / Time codeine AdvReac Vomiting Verified 12/23/19 09:55 diphenhydramine AdvReac Itching Verified 12/23/19 09:55 [From Benadryl] hydromorphone [From Dilaudid] AdvReac Vomiting Verified 12/23/19 09:55 Physical Exam Osteopathic Statement: *. No significant issues noted on an osteopathic structural exam other than those noted in the History and Physical/Consult. Vitals: Vital Signs Temp Pulse Pulse Resp BP BP Pulse Ox 12/23/19 16:00 72 16 142/70 97 12/23/19 12:00 69 16 135/69 99 12/23/19 08:00 96.2 F L 71 16 108/55 98 12/23/19 04:00 98.2 F 66 16 117/57 98 12/23/19 01:32 98.4 F 59 L 20 133/82 98 12/23/19 01:20 98.0 F 62 18 188/78 99 12/22/19 23:40 97.6 F 78 20 155/91 99 Intake and Output 12/23/19 12/23/19 12/23/19 06:59 14:59 22:59 Intake Total 1100 0 Balance 1100 0 Intake: Intake, IV Titration 1100 Amount Sodium Chloride 0.9% 1, 600 000 ml @ 75 mls/hr IV . [id number] JOAQUIM Rx#:[id number] Sodium Chloride 0.9% 500 500 ml 500 ml @ 999 mls/hr IV .Q31M ONE Rx#:[id number] Oral 0 Other: Voiding Method Toilet Toilet Toilet # Voids 1 Weight 62.6 kg GENERAL: This is a 69-year-old in no apparent distress at the time of examination. Pleasant and cooperative. HEENT: Head is atraumatic, normocephalic. Pupils are equal, round, and reactive to light. Sclerae anicteric. Conjunctivae are clear. Mucus membranes of the mouth are moist. Neck is supple. RESPIRATORY: Clear to auscultation. No wheezes, rales, or rhonchi. No use of accessory muscles. Patient maintaining oxygen saturation greater than 92%. No c hest wall tenderness is noted on palpation or with deep breathing. CARDIOVASCULAR: Regular rate and rhythm. S1 and S2 noted. No systolic or diastolic murmur auscultated. No JVD noted. No S3 or S4 noted. GASTROINTESTINAL: No distention noted. Abdomen soft and round. Normal active bowel sounds auscultated x 4 quadrants. No pain or tenderness noted upon palpation. INTEGUMENTARY: No cyanosis. No jaundice. No rashes noted. No cellulitis noted. EXTREMITIES: 2+ peripheral pulses. No evidence of peripheral edema. No calf tenderness noted. NEUROLOGIC: Cranial nerves II-XII intact. I'm not appreciating any tremors at this time. PSYCHIATRIC: Awake, alert, and oriented X 3. Appropriate affect. Intact judgement and insight. Results CBC & Chem 7: 12/23/19 10:29 12/23/19 17:35 Labs: Abnormal Lab Results - Last 24 Hours (Table) 12/23/19 12/23/19 12/23/19 Range/Units 00:20 00:20 00:20 Plt Count 504 H (150-450) k/uL Sodium 121 L (137-145) mmol/L Chloride 85 L (98-107) mmol/L Glucose 101 H (74-99) mg/dL POC Glucose (mg/dL) (75-99) mg/dL Total Bilirubin 2.3 H (0.2-1.3) mg/dL AST 37 H (14-36) U/L Total Protein 8.3 H (6.3-8.2) g/dL Albumin 5.2 H (3.5-5.0) g/dL Urine Protein 1+ H (Negative) Urine Ketones Trace H (Negative) Urine Blood Moderate H (Negative) Ur Leukocyte Esterase Trace H (Negative) Urine RBC 6 H (0-5) /hpf Hyaline Casts 175 H (0-2) /lpf Urine Mucus Few H (None) /hpf U Benzodiazepines Scrn Detected H (NotDetected) 12/23/19 12/23/19 12/23/19 Range/Units 06:06 10:29 17:35 Plt Count (150-450) k/uL Sodium 123 L 126 L (137-145) mmol/L Chloride 89 L 92 L (98-107) mmol/L Glucose 103 H (74-99) mg/dL POC Glucose (mg/dL) 106 H (75-99) mg/dL Total Bilirubin (0.2-1.3) mg/dL AST (14-36) U/L Total Protein (6.3-8.2) g/dL Albumin (3.5-5.0) g/dL Urine Protein (Negative) Urine Ketones (Negative) Urine Blood (Negative) Ur Leukocyte Esterase (Negative) Urine RBC (0-5) /hpf Hyaline Casts (0-2) /lpf Urine Mucus (None) /hpf U Benzodiazepines Scrn (NotDetected) Thrombosis Risk Factor Assmnt - Choose All That Apply Any of the Below Risk Factors Present?: Yes Other Risk Factors: Yes Each Risk Factor Represents 2 Points: Age 61-74 years Other congenital or acquired thrombophilia - If yes, enter type in comment: No Thrombosis Risk Factor Assessment Total Risk Factor Score: 2 Thrombosis Risk Factor Assessment Level: Low Risk Assessment and Plan (1) Occasional tremors Current Visit: Yes Status: Acute Code(s): R25.1 - TREMOR, UNSPECIFIED SNOMED Code(s): 08791195 (2) Hypertension Current Visit: Yes Status: Acute Code(s): I10 - ESSENTIAL (PRIMARY) HYPERTENSION SNOMED Code(s): 01983316 (3) Generalized anxiety disorder Current Visit: Yes Status: Acute Code(s): F41.1 - GENERALIZED ANXIETY D ISORDER SNOMED Code(s): 85789142 (4) Hyponatremia Current Visit: Yes Status: Acute Code(s): E87.1 - HYPO-OSMOLALITY AND HYPONATREMIA SNOMED Code(s): 11274300 Plan: Admit patient with sodium replacement continue to monitor we will decrease dose of her Celexa for her generalized anxiety. We'll consider discontinuing h ydrochlorothiazide. Recheck electrolytes in the morning
[2019-12-24] MEDS: SODIUM CHLORIDE 0.9% 1,000 ML IV SCH (04:36)
[2019-12-24] MEDS: CALCIUM CARB-VIT D 500MG-200UN 1 EACH TAB PO SCH ×2 (06:12→09:55)
[2019-12-24 06:25] LABS: Basophils # (A) 0.1 k/uL (0-0.2); Basophils % (A) 1 %; Eosinophils # (A) 0.2 k/uL (0-0.7); Eosinophils % (A) 2 %; HCT 40.2 % (34.0-46.0); HGB 13.1 gm/dL (11.4-16.0); Lymphocytes % (A) 28 %; MCH 29.1 pg (25.0-35.0); MCHC 32.7 g/dL (31.0-37.0); MCV 89.2 fL (80.0-100.0); Mean Platelet Volume 6.1; Monocytes # (A) 0.6 k/uL (0-1.0); Monocytes % (A) 9 %; Neutrophils # (A) 4.3 k/uL (1.3-7.7); Neutrophils % (A) 59 %; Platelet Count 494 k/uL (150-450); RBC 4.51 m/uL (3.80-5.40); RDW 11.7 % (11.5-15.5); WBC 7.3 k/uL (3.8-10.6)
[2019-12-24 06:38] LABS: ALT 18 U/L (4-34); AST 30 U/L (14-36); African American GFR (CKD) >90 (>60 ml/min/1.73 sqM); Albumin 4.3 g/dL (3.5-5.0); Alkaline Phosphatase 70 U/L (38-126); Anion Gap 9 mmol/L; Blood Urea Nitrogen 8 mg/dL (7-17); Calcium 9.3 mg/dL (8.4-10.2); Carbon Dioxide 24 mmol/L (22-30); Chloride 98 mmol/L (98-107); Glucose 88 mg/dL (74-99); Magnesium 2.2 mg/dL (1.6-2.3); Non-African American GFR(CKD) >90 (>60 ml/min/1.73 sqM); Phosphorus 3.6 mg/dL (2.5-4.5); Potassium 4.1 mmol/L (3.5-5.1); Sodium 131 mmol/L (137-145); Total Protein 7.1 g/dL (6.3-8.2)
[2019-12-24] MEDS ORDERED: LOSARTAN 50 MG TAB PO SCH (09:00)
[2019-12-24] MEDS ORDERED: LORATADINE 10 MG TAB PO SCH (09:00)
[2019-12-24] MEDS ORDERED: MULTIVITAMINS, THERA 1 EACH TAB PO SCH (09:00)
[2019-12-24] MEDS ORDERED: CHOLECALCIFEROL 1,000 UNIT TAB PO SCH (09:00)
[2019-12-24 09:53] VITALS: BP 134/75; PULSE 71; RESP 20; TEMP 97.5
--- NOTE | 2019-12-24 10:46 | P.NPCON ---
History of Present Illness - Reason for Consult hyponatremia - History of Present Illness Reason for consultation: Hyponatremia History of present illness: Patient is a 69-year-old female seen in consultation for hyponatremia. Patient's sodium level was 121 on admission and is improving with IV hydration. It is up to 131 this morning. Patient presented to the hospital due to anxiety and tremors which started on Monday. Patient states last she started Celexa and feels her symptoms are related to this. She's also been dry heaving and oral intake has been poor the last few days. She denies any diarrhea. Additionally she was also taking hydrochlorothiazide for hypertension outpatient . She is maintained on normal saline at 75 mL an hour. Oral intake is starting to improve. No edema. No chest pain or shortness of breath. No history of malignancy. No personal history of kidney disease. No fever or chills. Tremors have improved. Hemodynamically stable. Vital signs are stable. General: The patient appeared well nourished and normally developed. HEENT: Head exam is unremarkable. Neck is without jugular venous distension. LUNGS: Lungs are clear to auscultation and percussion. Breath sounds decreased. HEART: Rate and Rhythm are regular. First and second heart sounds normal. No murmurs, rubs or gallops. ABDOMEN: Abdominal exam reveals normal bowel sounds. Non-tender and non- distended. No evidence of peritonitis. EXTREMITITES: No clubbing, cyanosis, or edema. Past Medical History Past Medical History: Hypertension Additional Past Medical History / Comment(s): hemorrhoids. Seasonal allergies. 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 History of Any Multi-Drug Resistant Organisms: None Reported Past Surgical History: Section, Tubal Ligation Additional Past Surgical History / Comment(s): hemorrhoid banding. C-sections x2. Right rotator cuff surgery 2018. Colonoscopy 2017(next 5yrs). Past Anesthesia/Blood Transfusion Reactions: No Reported Reaction Additional Past Anesthesia/Blood Transfusion Reaction / Comment(s): motion sickness as child Past Psychological History: Anxiety Smoking Status: Never smoker Past Alcohol Use History: Occasional Past Drug Use History: None Reported - Past Family History Mother Family Medical History: No Reported History Additional Family Medical History / Comment(s): Grandmother has diabetes. Medications and Allergies Home Medications Medication Instructions Recorded Confirmed Type Cholecalciferol [Vitamin D3] 1,000 unit PO DAILY 05/07/17 12/23/19 History Multivitamins, Thera [Multivitamin 1 tab PO DAILY 05/07/17 12/23/19 History (formulary)] Calcium Carb/Vitamin D3/Vit K1 1 tab PO AC-BID@0700,1300 08/03/17 12/23/19 History [Viactiv Soft Chew Tablet] Cetirizine HCl [Zyrtec] 10 mg PO DAILY 12/23/19 12/23/19 History Hydrochlorothiazide 25 mg PO DAILY 12/23/19 12/23/19 History Losartan Potassium 100 mg PO DAILY 12/23/19 12/23/19 History Naproxen Sodium [Aleve] 220 mg PO BID PRN 12/23/19 12/23/19 History Allergies Allergy/AdvReac Type Severity Reaction Status Date / Time codeine AdvReac Vomiting Verified 12/23/19 09:55 diphenhydramine AdvReac Itching Verified 12/23/19 09:55 [From Benadryl] hydromorphone [From Dilaudid] AdvReac Vomiting Verified 12/23/19 09:55 Physical Exam Vitals: Vital Signs Temp Pulse Resp BP Pulse Ox 12/24/19 08:00 97.5 F L 71 20 134/75 98 12/24/19 03:12 98 F 62 16 124/58 99 12/23/19 23:36 98.1 F 67 16 123/62 97 12/23/19 20:00 98.1 F 70 16 142/66 97 12/23/19 16:00 72 16 142/70 97 12/23/19 12:00 69 16 135/69 99 Intake and Output 12/23/19 12/24/19 12/24/19 22:59 06:59 14:59 Other: Voiding Method Toilet Toilet # Voids 1 1 Weight 63 kg Results - Lab Results Most recent lab results Calcium 9.3 mg/dL (8.4-10.2) 12/24/19 06:03 Phosphorus 3.6 mg/dL (2.5-4.5) 12/24/19 06:03 Magnesium 2.2 mg/dL (1.6-2.3) 12/24/19 06:03 12/24/19 06:03 12/24/19 06:03 Assessment and Plan Plan: Assessment: 1. Hypovolemic hyponatremia further worsened with the use of hydrochlorothiazide, improving with normal saline. 2. Tremors possibly related to Celexa. Currently resolved. 3. Benign hypertension. Controlled. Plan: Decrease rate of normal saline to 50 mL an hour. Avoid thiazide diuretic use in the future. Check TSH. Encouraged oral intake, particularly protein. Thank you for the consultation. I will continue to follow the patient with you during her hospital stay.
--- NOTE | 2019-12-24 11:31 | P.DS ---
Providers Date of admission: 12/23/19 01:02 Expected date of discharge: 12/24/19 Attending physician: Eulogio Osuna Consults: 12/23/19 14:30 Consult Physician Routine Consulting Provider: Guillermina Beltrán Consult Reason/Comments: Hyponatremia, sodium 121 on admission Do you want consulting provider notified?: Yes Primary care physician: Eulogio Osuna Hospital Course: Final diagnoses Hypovolemic hyponatremia, HCTZ on hold Hypertension, controlled Hospital course:This is 69-year-old white female was admitted to through the emergency department with symptomatic hyponatremia she states for the past few days she has been having tremors and not feeling herself. This corresponds with her being very anxious she was initially seen in my office last week and placed on Celexa she states Mavis Aron too much for her and causing this hyponatremia. I told her that I didn't think this was due to the Celexa and that her anxiety is being really severe over the past several months. She is also on hydrochlorothiazide and losartan both can contribute to hyponatremia and also on copious water intake. She is currently getting 0.9 normal saline for replacement. She denies any fever cough chills she denies any chest pain she denies any shortness of breath she denies any frequency urination or diabetes. She denies any kidney disease. Maintained on gentle IV fluid hydration, evaluated by nephrology. Significant clinical improvement. Celexa dose decreased. Patient will be discharged home pending clearance of nephrology, in stable condition with guarded prognosis. EXAM: GENERAL: Alert and oriented 3,NAD RESPIRATORY: Clear to auscultation. No wheezes, rales, or rhonchi. CARDIOVASCULAR: Regular rate and rhythm. S1 and S2 noted. No systolic or diastolic murmur. GASTROINTESTINAL: Soft, nondistended, nontender, positive bowel sounds. NEUROLOGIC: Cranial nerves II-XII intact. No tremors at this time. The impression and plan of care has been dictated as directed. : I performed a history and examination of this patient, discussed the same with the dictator. I agree with the dictator's note ,documented as a scribe. Any additional findings or plans will be noted. Patient Condition at Discharge: Stable Plan - Discharge Summary Discharge Rx Participant: No New Discharge Prescriptions: New Citalopram Hydrobromide [CeleXA] 10 mg PO DAILY #1 tab Continue Multivitamins, Thera [Multivitamin (formulary)] 1 tab PO DAILY Cholecalciferol [Vitamin D3 (25 Mcg = 1000 Iu)] 1,000 unit PO DAILY Calcium Carb/Vitamin D3/Vit K1 [Viactiv 650 mg-12.5 Mcg Chew] 1 tab PO AC- BID@0700,1300 Losartan Potassium 100 mg PO DAILY Cetirizine HCl [Zyrtec] 10 mg PO DAILY Discontinued Naproxen Sodium [Aleve] 220 mg PO BID PRN PRN Reason: Pain Discharge Medication List Cholecalciferol [Vitamin D3 (25 Mcg = 1000 Iu)] 1,000 unit PO DAILY 05/07/17 [History] Multivitamins, Thera [Multivitamin (formulary)] 1 tab PO DAILY 05/07/17 [History] Calcium Carb/Vitamin D3/Vit K1 [Viactiv 650 mg-12.5 Mcg Chew] 1 tab PO AC- BID@0700,1300 08/03/17 [History] Cetirizine HCl [Zyrtec] 10 mg PO DAILY 12/23/19 [History] Losartan Potassium 100 mg PO DAILY 12/23/19 [History] Citalopram Hydrobromide [CeleXA] 10 mg PO DAILY #1 tab 12/24/19 [Rx] Follow up Appointment(s)/Referral(s): Guillermina Beltrán MD [STAFF PHYSICIAN] - 1 Week (spoke to medical office receptionist assistant, office will call you with appointment time) Eulogio Osuna DO [Primary Care Provider] - 12/27/19 11:30 am (Monday) Ambulatory/Diagnostic Orders: Basic Metabolic Panel [LAB.AMB] Time Frame: 3 Days, Location: None Selected Patient Instructions/Handouts: Hyponatremia (DC) Activity/Diet/Wound Care/Special Instructions: HCTZ on hold. Pending nephrology clearance
== END 2019-12-24 11:59 | disposition home or self-care (01) | DRG 641 ==
LOC: EC 23:35 → 3SCARD 12-23 01:02
PROVIDERS: ADMIT Family Medicine; ATTEND Family Medicine
DX: E87.1 Hypo-osmolality and hyponatremia (principal); F41.9 Anxiety disorder, unspecified; I10 Essential (primary) hypertension; J30.2 Other seasonal allergic rhinitis; K64.9 Unspecified hemorrhoids; E80.6 Other disorders of bilirubin metabolism; E86.1 Hypovolemia; F41.1 Generalized anxiety disorder; G25.2 Other specified forms of tremor; T43.225A Adverse effect of selective serotonin reuptake inhibitors, initial encounter; T50.2X5A Adverse effect of carbonic-anhydrase inhibitors, benzothiadiazides and other diuretics, initial encounter; Y92.009 Unspecified place in unspecified non-institutional (private) residence as the place of occurrence of the external cause; Z88.8 Allergy status to other drugs, medicaments and biological substances; Z88.5 Allergy status to narcotic agent; Z79.899 Other long term (current) drug therapy; Z98.51 Tubal ligation status; Z98.891 History of uterine scar from previous surgery; Z98.890 Other specified postprocedural states; Z83.3 Family history of diabetes mellitus
CPT/HCPCS: 36415; 76705; 80048; 80053; 80306; 80320; 80329; 81001; 83520; 83735; 84100; 84443; 85025; 93005; 96374; 99285

== ENCOUNTER → 2021-06-01 | Outpatient (CLI) | payer MEDICARE ==
[2021-06-01 11:47] VITALS: BP 152/91; PULSE 68; RESP 18; TEMP 98.2
--- NOTE | 2021-06-01 12:15 | P.HPOB ---
History of Present Illness H&P Date: 06/01/21 Chief Complaint: The patient is here for her routine gynecologic exam and ma mmogram. This is a 71-year-old with an LMP of 2000. The patient is without gynecologic complaints and denies any postmenopausal bleeding. Review of Systems She has gained about 3 pounds over the past 2 years.. She denies respiratory, cardiac and G.I. problems. She denies maltreatment or problems with falling. : she denies any significant problems with urinary leakage. Past Medical History Past Medical History: Hypertension Additional Past Medical History / Comment(s): hemorrhoids. Seasonal allergies. 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 History of Any Multi-Drug Resistant Organisms: None Reported Past Surgical History: Section, Tubal Ligation Additional Past Surgical History / Comment(s): hemorrhoid banding. C-sections x2. Right rotator cuff surgery 2018. Colonoscopy 2017(next 5yrs). 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 - Past Family History Mother Family Medical History: No Reported History Additional Family Medical History / Comment(s): Grandmother has diabetes. Medications and Allergies Home Medications Medication Instructions Recorded Confirmed Type Cholecalciferol [Vitamin D3 (25 1,000 unit PO DAILY 05/07/17 06/01/21 History Mcg = 1000 Iu)] Multivitamins, Thera [Multivitamin 1 tab PO DAILY 05/07/17 06/01/21 History (formulary)] Calcium Carb/Vitamin D3/Vit K1 1 tab PO AC-BID@0700,1300 08/03/17 06/01/21 History [Viactiv 650 mg-12.5 Mcg Chew] Cetirizine HCl [Zyrtec] 10 mg PO DAILY 12/23/19 06/01/21 History Losartan Potassium 100 mg PO DAILY 12/23/19 06/01/21 History Biotin 5,000 mcg PO QAM 06/01/21 06/01/21 History Sertraline [Zoloft] 25 mg PO DAILY 06/01/21 06/01/21 History amLODIPine [Norvasc] 5 mg PO DAILY 06/01/21 06/01/21 History Allergies Allergy/AdvReac Type Severity Reaction Status Date / Time codeine AdvReac Vomiting Verified 06/01/21 11:42 diphenhydramine AdvReac Itching Verified 06/01/21 11:42 [From Benadryl] hydromorphone [From Dilaudid] AdvReac Vomiting Verified 06/01/21 11:42 Exam Vital Signs Temp Pulse Resp BP Pulse Ox 06/01/21 11:42 98.2 F 68 18 152/91 98 Intake and Output 05/31/21 06/01/21 06/01/21 22:59 06:59 14:59 Other: Weight 63.957 kg Height 5 feet 0 inches, weight 141 pounds, BMI 27.5. This is a well-developed well-nourished white female who is alert and oriented times 3 in no acute distress. HEENT: Within normal limits. NECK: Supple without mass or thyromegaly. CHEST AND LUNGS: Clear to auscultation. HEART: Regular rate and rhythm. BREASTS: Are without mass or discharge. AXILLARY EXAM: Negative for adenopathy. BACK: Negative for CVA tenderness. ABDOMEN: Soft, nontender, without palpable masses. PELVIC EXAM: Normal external genitalia with mild to moderate atrophy. Cervix and vagina appear normal mild to moderate atrophy. There is no unusual discharge. There is no evidence of prolapse. The uterus is midposition, nongravid size and nontender. There are no palpable adnexal masses or tenderness. RECTAL EXAM: Rectovaginal exam is negative for mass or tenderness and is negative for occult blood. EXTREMITIES: Nontender. IMPRESSION: 1. 71-year-old menopausal female with normal gynecologic exam. PLAN: 1. Pap smear was performed. If this one is negative we will plan on discontinuing Pap smears since she has no history of cervical neoplasia and will have had 3 negative Pap smears within the last 10 years. 2. Self breast awareness was discussed with the patient. 3. Screening mammogram will be done today. 4. Osteoporosis prevention was discussed. I have stressed the importance of adequate calcium, vitamin D and regular exercise. Recommended amounts of calcium and vitamin D were also discussed. I have recommended bone density testing since she has never had this done. The order slip was given to the patient for this. 5. She did complete her Covid vaccination series and did get a flu shot last fall. 6. She was advised to return in one year for her annual well woman exam.
== END ==
LOC: WWCWWP 11:20
PROVIDERS: ATTEND Obstetrics & Gynecology
DX: Z01.419 Encounter for gynecological examination (general) (routine) without abnormal findings (principal); I10 Essential (primary) hypertension; F41.9 Anxiety disorder, unspecified; Z79.899 Other long term (current) drug therapy; Z88.5 Allergy status to narcotic agent; Z88.8 Allergy status to other drugs, medicaments and biological substances

== ENCOUNTER → 2021-06-01 | Outpatient (CLI) | payer MEDICARE ==
--- NOTE | 2021-06-02 09:00 | MM ---
Reason for exam: screening (asymptomatic). Last mammogram was performed 2 years and 4 months ago. History: Patient is postmenopausal. Physical Findings: A clinical breast exam by your physician is recommended on an annual basis and results should be correlated with mammographic findings. MG 3D Screening Mammo W/Cad Bilateral CC and MLO view(s) were taken. Prior study comparison: February 12, 2019, bilateral MG 3d screening mammo w/cad. January 03, 2017, bilateral MG 3d screening mammo w/cad. The breast tissue is heterogeneously dense. This may lower the sensitivity of mammography. ASSESSMENT: Negative, BI-RAD 1 RECOMMENDATION: Routine screening mammogram of both breasts in 1 year.
== END | disposition home or self-care (01) ==
LOC: RADMAMWWP 11:17
PROVIDERS: ATTEND Family Medicine
DX: Z12.31 Encounter for screening mammogram for malignant neoplasm of breast (principal); Z78.0 Asymptomatic menopausal state
CPT/HCPCS: 77063; 77067

== ENCOUNTER 2022-01-16 08:24 | Emergency (ER) | payer MEDICARE ==
[2022-01-16 08:30] VITALS: TEMP 97.4
[2022-01-16] MEDS ORDERED: ASPIRIN 81 MG PO STA (08:47)
[2022-01-16] MEDS ORDERED: LORazepam 2 MG/ML INJ IV STA (08:47)
--- NOTE | 2022-01-16 09:06 | ED ---
General Adult HPI - General Chief complaint: Chest Pain Stated complaint: Abn labs Time Seen by Provider: 01/16/22 08:31 Source: patient Mode of arrival: ambulatory Limitations: no limitations - History of Present Illness Initial comments: Dictation was produced using [employer] dictation software. please excuse any grammatical, word or spelling errors. Chief Complaint: 71-year-old female presents with tremors and chest tightness History of Present Illness: 71-year-old female she woke up this morning feeling like she was shaking. Shows complains of chest tightness. She has extensive history of anxiety. She has been treated with multiple medications for anxiety. She states she woke this morning with perhaps a feeling of tightness in her chest. She denies any pain. Nonradiating. Does not associated with diaphoresis or nausea. Not worse with deep inspiration. No shortness of breath. Patient has any history of coronary artery disease. She denies any cardiac history. No family history of coronary artery disease. Patient doesn't smoke and never has used tobacco before. The ROS documented in this emergency department record has been reviewed and confirmed by me. Those systems with pertinent positive or negative responses have been documented in the HPI. All other systems are other negative and/or noncontributory. PHYSICAL EXAM: General Impression: Alert and oriented x3, not in acute distress HEENT: Normocephalic atraumatic, extra-ocular movements intact, pupils equal and reactive to light bilaterally, mucous membranes moist. Cardiovascular: Heart regular rate and rhythm Chest: Able to complete full sentences, no retractions, no tachypnea Abdomen: abdomen soft, non-tender, non-distended, no organomegaly Musculoskeletal: Pulses present and equal in all extremities, no peripheral edema Motor: no focal deficits noted Neurological: CN II-XII grossly intact, no focal motor or sensory deficits noted Skin: Intact with no visualized rashes Psych: Normal affect and mood ED course: 71-year-old female presents emergency department for atypical chest symptoms and tremors. Vital Signs upon arrival are within acceptable limits. Patient has a low heart score. Her pain is very atypical. She has no high-risk features. EKGs benign. Laboratory evaluation obtained. CBC, metabolic panel troponin within acceptable limits. Sodium is 131. Patient's history of hyponatremia. She's been significantly lower than this. Chest x-ray is nonacute. Patient remembered bedside feel significantly improved after anxiolytics. Click or presentation likely anxiety reaction. Patient discharged told to increase the sodium in her diet. EKG interpretation: Ventricular rate 75, sinus rhythm, GA interval 161, QRS 91, QTC 414. No GA prolongation, no QTC prolongation, no ST or T-wave changes noted. Overall, this EKG is unremarkable - Related Data Home Medications Medication Instructions Recorded Confirmed Cholecalciferol [Vitamin D3 (25 1,000 unit PO DAILY 05/07/17 06/01/21 Mcg = 1000 Iu)] Multivitamins, Thera [Multivitamin 1 tab PO DAILY 05/07/17 06/01/21 (formulary)] Calcium Carb/Vitamin D3/Vit K1 1 tab PO AC-BID@0700,1300 08/03/17 06/01/21 [Viactiv 650 mg-12.5 Mcg Chew] Cetirizine HCl [Zyrtec] 10 mg PO DAILY 12/23/19 06/01/21 Losartan Potassium 100 mg PO DAILY 12/23/19 06/01/21 Biotin [Biotin Disolve] 5,000 mcg PO QAM 06/01/21 06/01/21 Sertraline [Zoloft] 25 mg PO DAILY 06/01/21 06/01/21 amLODIPine [Norvasc] 5 mg PO DAILY 06/01/21 06/01/21 Allergies Allergy/AdvReac Type Severity Reaction Status Date / Time codeine AdvReac Vomiting Verified 01/16/22 08:30 diphenhydramine AdvReac Itching Verified 01/16/22 08:30 [From Benadryl] hydromorphone [From Dilaudid] AdvReac Vomiting Verified 01/16/22 08:30 Review of Systems ROS Statement: Those systems with pertinent positive or pertinent negative responses have been documented in the HPI. ROS Other: All systems not noted in ROS Statement are negative. Past Medical History Past Medical History: Hypertension Additional Past Medical History / Comment(s): hemorrhoids. Seasonal allergies. 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 History of Any Multi-Drug Resistant Organisms: None Reported Past Surgical History: Section, Tubal Ligation Additional Past Surgical History / Comment(s): hemorrhoid banding. C-sections x2. Right rotator cuff surgery 2018. Colonoscopy 2017(next 5yrs). Past Anesthesia/Blood Transfusion Reactions: No Reported Reaction Additional Past Anesthesia/Blood Transfusion Reaction / Comment(s): motion sickness as child Past Psychological History: Anxiety Smoking Status: Never smoker Past Alcohol Use History: Rare Past Drug Use History: None Reported - Past Family History Mother Family Medical History: No Reported History Additional Family Medical History / Comment(s): Grandmother has diabetes. General Exam Limitations: no limitations Course Vital Signs 01/16/22 01/16/22 08:26 09:49 Temperature 97.4 F L Pulse Rate 84 79 Respiratory 22 18 Rate Blood Pressure 161/79 116/72 O2 Sat by Pulse 100 99 Oximetry Medical Decision Making - Lab Data Result diagrams: 01/16/22 08:48 01/16/22 08:48 Lab Results 01/16/22 01/16/22 01/16/22 Range/Units 08:48 08:48 08:48 WBC 11.4 H (3.8-10.6) k/uL RBC 4.47 (3.80-5.40) m/uL Hgb 13.6 (11.4-16.0) gm/dL Hct 41.4 (34.0-46.0) % MCV 92.7 (80.0-100.0) fL MCH 30.4 (25.0-35.0) pg MCHC 32.8 (31.0-37.0) g/dL RDW 12.5 (11.5-15.5) % Plt Count 533 H (150-450) k/uL MPV 6.7 Neutrophils % 82 % Lymphocytes % 12 % Monocytes % 4 % Eosinophils % 1 % Basophils % 1 % Neutrophils # 9.3 H (1.3-7.7) k/uL Lymphocytes # 1.4 (1.0-4.8) k/uL Monocytes # 0.4 (0-1.0) k/uL Eosinophils # 0.1 (0-0.7) k/uL Basophils # 0.1 (0-0.2) k/uL Sodium 131 L (137-145) mmol/L Potassium 4.1 (3.5-5.1) mmol/L Chloride 98 (98-107) mmol/L Carbon Dioxide 22 (22-30) mmol/L Anion Gap 11 mmol/L BUN 14 (7-17) mg/dL Creatinine 0.76 (0.52-1.04) mg/dL Est GFR (CKD-EPI)AfAm >90 (>60 ml/min/1.73 sqM) Est GFR (CKD-EPI)NonAf 81 (>60 ml/min/1.73 sqM) Glucose 93 (74-99) mg/dL Calcium 10.0 (8.4-10.2) mg/dL Magnesium 1.9 (1.6-2.3) mg/dL Troponin I <0.012 (0.000-0.034) ng/mL Disposition Clinical Impression: Anxiety reaction Disposition: HOME SELF-CARE Condition: Good Instructions (If sedation given, give patient instructions): Anxiety (ED) Is patient prescribed a controlled substance at d/c from ED?: No Referrals: Eulogio Osuna DO [Primary Care Provider] - 1-2 days
[2022-01-16 09:17] LABS: Basophils # (A) 0.1 k/uL (0-0.2); Basophils % (A) 1 %; Eosinophils # (A) 0.1 k/uL (0-0.7); Eosinophils % (A) 1 %; HCT 41.4 % (34.0-46.0); HGB 13.6 gm/dL (11.4-16.0); Lymphocytes # (A) 1.4 k/uL (1.0-4.8); Lymphocytes % (A) 12 %; MCH 30.4 pg (25.0-35.0); MCHC 32.8 g/dL (31.0-37.0); MCV 92.7 fL (80.0-100.0); Mean Platelet Volume 6.7; Monocytes # (A) 0.4 k/uL (0-1.0); Monocytes % (A) 4 %; Neutrophils # (A) 9.3 k/uL (1.3-7.7); Neutrophils % (A) 82 %; Platelet Count 533 k/uL (150-450); RBC 4.47 m/uL (3.80-5.40); RDW 12.5 % (11.5-15.5); WBC 11.4 k/uL (3.8-10.6)
[2022-01-16 09:25] LABS: African American GFR (CKD) >90 (>60 ml/min/1.73 sqM); Anion Gap 11 mmol/L; Blood Urea Nitrogen 14 mg/dL (7-17); Carbon Dioxide 22 mmol/L (22-30); Chloride 98 mmol/L (98-107); Glucose 93 mg/dL (74-99); Magnesium 1.9 mg/dL (1.6-2.3); Non-African American GFR(CKD) 81 (>60 ml/min/1.73 sqM); Potassium 4.1 mmol/L (3.5-5.1); Sodium 131 mmol/L (137-145)
--- NOTE | 2022-01-16 09:29 | XR ---
EXAMINATION TYPE: XR chest 1V portable DATE OF EXAM: 01/16/2022 COMPARISON: NONE HISTORY: Chest tightness, pain TECHNIQUE: Single frontal view of the chest is obtained. FINDINGS: There is no focal air space opacity, pleural effusion, or pneumothorax seen. The cardiac silhouette size is within normal limits. There are overlying leads. The osseous structures are intac t. IMPRESSION: No acute process.
[2022-01-16 09:50] VITALS: BP 116/72; PULSE 79; RESP 18
== END 2022-01-16 10:19 | disposition home or self-care (01) ==
LOC: EC 08:24
DX: F41.9 Anxiety disorder, unspecified (principal); I10 Essential (primary) hypertension; Z79.899 Other long term (current) drug therapy
CPT/HCPCS: 36415; 93005; 80048; 83735; 84484; 85025; 71045; 99285; 96374; J2060

== ENCOUNTER 2022-01-23 13:05 | Emergency (ER) | payer MEDICARE ==
[2022-01-23 13:10] VITALS: RESP 20; TEMP 98.1
[2022-01-23] MEDS ORDERED: LORazepam 1 MG TAB PO STA (13:35)
--- NOTE | 2022-01-23 13:40 | ED ---
Anxiety HPI - General Chief Complaint: Anxiety Stated Complaint: Shakiness, revisit Time Seen by Provider: 01/23/22 13:15 Source: patient Mode of arrival: ambulatory - History of Present Illness Initial Comments: 18-year-old female with a history of anxiety in the past who presents today with complaints of severe anxiety and shaking no fevers chills nausea vomiting sweats no definitive cause for this. She is in the process of being worked up she was on Zoloft and was raised from 25 mg at night to 50 mg at night several days ago. She denies any fevers chills nausea vomiting sweats shortness of breath or other symptoms she is noted during the interview to be hyperventilating. She does state that she thought it started several months ago she had hemorrhoids hemorrhoids admission dull with surgically early part of last month. MD Complaint: anxiety - Related Data Home Medications: Home Medications Medication Instructions Recorded Confirmed Cholecalciferol [Vitamin D3 (25 1,000 unit PO DAILY 05/07/17 06/01/21 Mcg = 1000 Iu)] Multivitamins, Thera [Multivitamin 1 tab PO DAILY 05/07/17 06/01/21 (formulary)] Calcium Carb/Vitamin D3/Vit K1 1 tab PO AC-BID@0700,1300 08/03/17 06/01/21 [Viactiv 650 mg-12.5 Mcg Chew] Cetirizine HCl [Zyrtec] 10 mg PO DAILY 12/23/19 06/01/21 Losartan Potassium 100 mg PO DAILY 12/23/19 06/01/21 Biotin [Biotin Disolve] 5,000 mcg PO QAM 06/01/21 06/01/21 Sertraline [Zoloft] 25 mg PO DAILY 06/01/21 06/01/21 amLODIPine [Norvasc] 5 mg PO DAILY 06/01/21 06/01/21 Previous Rx's Medication Instructions Recorded ALPRAZolam [Xanax] 0.25 mg PO Q8HR PRN 3 Days #12 tab 01/23/22 Allergies/Adverse Reactions: Allergies Allergy/AdvReac Type Severity Reaction Status Date / Time codeine AdvReac Vomiting Verified 01/23/22 13:10 diphenhydramine AdvReac Itching Verified 01/23/22 13:10 [From Benadryl] hydromorphone [From Dilaudid] AdvReac Vomiting Verified 01/23/22 13:10 Review of Systems ROS Statement: Those systems with pertinent positive or pertinent negative responses have been documented in the HPI. ROS Other: All systems not noted in ROS Statement are negative. Past Medical History Past Medical History: Hypertension Additional Past Medical History / Comment(s): hemorrhoids. Seasonal allergies. 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 History of Any Multi-Drug Resistant Organisms: None Reported Past Surgical History: Section, Tubal Ligation Additional Past Surgical History / Comment(s): hemorrhoid banding. C-sections x2. Right rotator cuff surgery 2018. Colonoscopy 2017(next 5yrs). Past Anesthesia/Blood Transfusion Reactions: No Reported Reaction Additional Past Anesthesia/Blood Transfusion Reaction / Comment(s): motion sickness as child Past Psychological History: Anxiety Smoking Status: Never smoker Past Alcohol Use History: Rare Past Drug Use History: None Reported - Past Family History Mother Family Medical History: No Reported History Additional Family Medical History / Comment(s): Grandmother has diabetes. General Exam - General Exam Comments Initial Comments: This is a well-developed well-nourished awake alert anxious appearing female who is hyperventilating Limitations: no limitations General appearance: alert, anxious Head exam: Present: atraumatic, normocephalic, normal inspection Eye exam: Present: normal appearance, PERRL, EOMI. Absent: scleral icterus, conjunctival injection, periorbital swelling ENT exam: Present: mucous membranes dry Neck exam: Present: normal inspection, full ROM, other (No stridor JVD or bruits). Absent: tenderness, meningismus, lymphadenopathy Respiratory exam: Present: normal lung sounds bilaterally. Absent: respiratory distress, wheezes, rales, rhonchi, stridor Cardiovascular Exam: Present: regular rate, normal rhythm, normal heart sounds. Absent: systolic murmur, diastolic murmur, rubs, gallop, clicks GI/Abdominal exam: Present: soft, normal bowel sounds. Absent: distended, tenderness, guarding, rebound, rigid Extremities exam: Present: normal inspection, full ROM, normal capillary refill. Absent: tenderness, pedal edema, joint swelling, calf tenderness Back exam: Present: normal inspection Neurological exam: Present: alert, oriented X3, CN II-XII intact Psychiatric exam: Present: normal affect, anxious Skin exam: Present: warm, dry, intact, normal color. Absent: rash Course Vital Signs 01/23/22 01/23/22 13:08 14:00 Temperature 98.1 F Pulse Rate 82 68 Respiratory 20 20 Rate Blood Pressure 141/75 135/75 O2 Sat by Pulse 99 100 Oximetry Medical Decision Making - Medical Decision Making Patient is feeling improved after medication given. She will be discharged at this time lab work is consistent with that done a week ago. She'll be following up with her doctor this week she only has several Xanax left I will write for prescription for 12 for her. 0.25 mg - Lab Data Result diagrams: 01/23/22 14:13 01/23/22 14:13 Lab Results 01/23/22 01/23/22 Range/Units 14:13 14:13 WBC 8.3 (3.8-10.6) k/uL RBC 4.38 (3.80-5.40) m/uL Hgb 13.5 (11.4-16.0) gm/dL Hct 39.2 (34.0-46.0) % MCV 89.5 (80.0-100.0) fL MCH 30.9 (25.0-35.0) pg MCHC 34.5 (31.0-37.0) g/dL RDW 11.7 (11.5-15.5) % Plt Count 480 H (150-450) k/uL MPV 6.3 Neutrophils % 69 % Lymphocytes % 20 % Monocytes % 7 % Eosinophils % 1 % Basophils % 1 % Neutrophils # 5.7 (1.3-7.7) k/uL Lymphocytes # 1.6 (1.0-4.8) k/uL Monocytes # 0.6 (0-1.0) k/uL Eosinophils # 0.1 (0-0.7) k/uL Basophils # 0.1 (0-0.2) k/uL Sodium 130 L (137-145) mmol/L Potassium 3.9 (3.5-5.1) mmol/L Chloride 98 (98-107) mmol/L Carbon Dioxide 17 L (22-30) mmol/L Anion Gap 15 mmol/L BUN 14 (7-17) mg/dL Creatinine 0.75 (0.52-1.04) mg/dL Est GFR (CKD-EPI)AfAm >90 (>60 ml/min/1.73 sqM) Est GFR (CKD-EPI)NonAf 82 (>60 ml/min/1.73 sqM) Glucose 103 H (74-99) mg/dL Calcium 10.1 (8.4-10.2) mg/dL Magnesium 1.9 (1.6-2.3) mg/dL Total Bilirubin 1.4 H (0.2-1.3) mg/dL AST 20 (14-36) U/L ALT 14 (4-34) U/L Alkaline Phosphatase 88 (38-126) U/L Total Protein 7.7 (6.3-8.2) g/dL Albumin 4.7 (3.5-5.0) g/dL TSH 1.220 (0.465-4.680) mIU/L Disposition Clinical Impression: Acute anxiety Disposition: HOME SELF-CARE Condition: Good Instructions (If sedation given, give patient instructions): Generalized Anxiety Disorder (ED) Prescriptions: ALPRAZolam [Xanax] 0.25 mg PO Q8HR PRN 3 Days #12 tab PRN Reason: Anxiety Is patient prescribed a controlled substance at d/c from ED?: No Referrals: Eulogio Osuna DO [Primary Care Provider] - 1-2 days
[2022-01-23 14:32] LABS: Basophils # (A) 0.1 k/uL (0-0.2); Basophils % (A) 1 %; Eosinophils # (A) 0.1 k/uL (0-0.7); Eosinophils % (A) 1 %; HCT 39.2 % (34.0-46.0); HGB 13.5 gm/dL (11.4-16.0); Lymphocytes # (A) 1.6 k/uL (1.0-4.8); Lymphocytes % (A) 20 %; MCH 30.9 pg (25.0-35.0); MCHC 34.5 g/dL (31.0-37.0); MCV 89.5 fL (80.0-100.0); Mean Platelet Volume 6.3; Monocytes # (A) 0.6 k/uL (0-1.0); Monocytes % (A) 7 %; Neutrophils # (A) 5.7 k/uL (1.3-7.7); Neutrophils % (A) 69 %; Platelet Count 480 k/uL (150-450); RBC 4.38 m/uL (3.80-5.40); RDW 11.7 % (11.5-15.5); WBC 8.3 k/uL (3.8-10.6)
[2022-01-23 14:42] LABS: ALT 14 U/L (4-34); AST 20 U/L (14-36); African American GFR (CKD) >90 (>60 ml/min/1.73 sqM); Albumin 4.7 g/dL (3.5-5.0); Alkaline Phosphatase 88 U/L (38-126); Anion Gap 15 mmol/L; Blood Urea Nitrogen 14 mg/dL (7-17); Calcium 10.1 mg/dL (8.4-10.2); Carbon Dioxide 17 mmol/L (22-30); Chloride 98 mmol/L (98-107); Glucose 103 mg/dL (74-99); Magnesium 1.9 mg/dL (1.6-2.3); Non-African American GFR(CKD) 82 (>60 ml/min/1.73 sqM); Potassium 3.9 mmol/L (3.5-5.1); Sodium 130 mmol/L (137-145); Total Bilirubin 1.4 mg/dL (0.2-1.3); Total Protein 7.7 g/dL (6.3-8.2)
[2022-01-23 15:47] VITALS: BP 128/81; PULSE 65
== END 2022-01-23 15:47 | disposition home or self-care (01) ==
LOC: EC 13:05
DX: F41.9 Anxiety disorder, unspecified (principal); I10 Essential (primary) hypertension; Z88.1 Allergy status to other antibiotic agents; Z88.5 Allergy status to narcotic agent; Z98.51 Tubal ligation status
CPT/HCPCS: 36415; 80053; 83735; 84443; 85025; 99283

== ENCOUNTER → 2022-07-05 | Outpatient (CLI) | payer MEDICARE ==
--- NOTE | 2022-07-05 10:38 | P.HPOB ---
History of Present Illness H&P Date: 07/05/22 Chief Complaint: The patient is here for her routine gynecologic exam and ma mmogram. This is a 72-year-old with an LMP of 2000. The patient is complaining of vaginal dryness and discomfort with intercourse. She states they do attempt sexual intercourse, but it feels like the vagina is shrinking and is dry. She is otherwise without gynecologic complaints. Review of Systems The patient has lost 11 pounds over the last year. She denies respiratory, cardiac, or G.I. problems. Past Medical History Past Medical History: Hypertension Additional Past Medical History / Comment(s): hemorrhoids. Seasonal allergies. 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 History of Any Multi-Drug Resistant Organisms: None Reported Past Surgical History: Section, Tubal Ligation Additional Past Surgical History / Comment(s): hemorrhoid banding. C-sections x2. Right rotator cuff surgery 2018. Colonoscopy 2017(next 5yrs). Past Anesthesia/Blood Transfusion Reactions: No Reported Reaction Additional Past Anesthesia/Blood Transfusion Reaction / Comment(s): motion sickness as child Past Psychological History: Anxiety Smoking Status: Never smoker Past Alcohol Use History: Rare (5 per year) Past Drug Use History: None Reported Additional History: She has been since 1971 and is sexually active. 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 - Past Family History Mother Family Medical History: No Reported History Additional Family Medical History / Comment(s): Grandmother has diabetes. Medications and Allergies Home Medications Medication Instructions Recorded Confirmed Type Cholecalciferol [Vitamin D3 (25 1,000 unit PO DAILY 05/07/17 07/05/22 History Mcg = 1000 Iu)] Multivitamins, Thera [Multivitamin 1 tab PO DAILY 05/07/17 07/05/22 History (formulary)] Calcium Carb/Vitamin D3/Vit K1 1 tab PO AC-BID@0700,1300 08/03/17 07/05/22 History [Viactiv 650 mg-12.5 Mcg Chew] Cetirizine HCl [Zyrtec] 10 mg PO DAILY 12/23/19 07/05/22 History Losartan Potassium 100 mg PO DAILY 12/23/19 07/05/22 History Sertraline [Zoloft] 50 mg PO DAILY 06/01/21 07/05/22 History amLODIPine [Norvasc] 5 mg PO DAILY 06/01/21 07/05/22 History ALPRAZolam [Xanax] 0.25 mg PO Q8HR PRN 3 Days #12 tab 01/23/22 07/05/22 Rx Allergies Allergy/AdvReac Type Severity Reaction Status Date / Time codeine AdvReac Vomiting Verified 07/05/22 09:44 diphenhydramine AdvReac Itching Verified 07/05/22 09:44 [From Benadryl] hydromorphone [From Dilaudid] AdvReac Vomiting Verified 07/05/22 09:44 Exam Blood pressure 144/75, height 5 foot 1 inch, weight 130 pounds, BMI 25. Temperature 98.2, pulse 61, pulse oximeter 99%. This is a well-developed well-nourished white female who is alert and oriented times 3 in no acute distress. HEENT: Within normal limits. NECK: Supple without mass or thyromegaly. CHEST AND LUNGS: Clear to auscultation. HEART: Regular rate and rhythm. BREASTS: Are without mass or discharge. There is bilateral nipple inversion which she states she has had most of her life. There is a birthmark type mole measuring approximately 1.5 cm at the 8 o'clock position which she states she has had most of her life. AXILLARY EXAM: Negative for adenopathy. BACK: Negative for CVA tenderness. ABDOMEN: Soft, nontender, without palpable masses. PELVIC EXAM: Normal external genitalia with mild to moderate atrophy. Cervix and vagina appear normal with mild to moderate atrophy. There is no unusual discharge. There is no evidence of prolapse. The uterus is midposition, nongravid size and nontender. There are no palpable adnexal masses or tenderness. RECTAL EXAM: Refused because of her recent hemorrhoid surgery. EXTREMITIES: Nontender. IMPRESSION: 1. 72-year-old menopausal female with normal gynecologic exam. 2. Dyspareunia secondary to vaginal dryness with genital atrophy. PLAN: 1. Pap smears have been discontinued. 2. Self breast awareness was discussed with the patient. We have also discussed symptoms associated with inflammatory breast cancer. 3. Screening mammogram was done today. 4. Osteoporosis prevention was discussed. I have stressed the importance of adequate calcium, vitamin D and regular exercise. Recommended amounts of calcium and vitamin D were also discussed. Bone density testing was done today. This is a baseline test. 5. We have had a long discussion regarding her vaginal dryness and dyspareunia. She would like to have a trial of Premarin vaginal cream. A sample was given to the patient. She is to insert 1 g into the vagina 2 times weekly. The electronic prescription will be sent to [facility] pharmacy. 6. She has completed her Covid vaccination series and did receive 2 boosters. 7. She was advised to return in one year for her annual well woman exam and as needed.
--- NOTE | 2022-07-05 13:29 | BD ---
EXAMINATION TYPE: Axial Bone Density DATE OF EXAM: 07/05/2022 COMPARISON: NONE CLINICAL HISTORY: 72 years year old Female. ICD-10 CODE: Z780 POST FRED WITHOUT HRT Height: 5'0 Weight: 129 FRAX RISK QUESTIONS: History of Fracture in Adulthood: Y Secondary Osteoporosis: RISK FACTORS HISTORY OF: Postmenopausal woman: y MEDICATIONS: Additional Medications: blood pressure, anxiety Additional History: EXAM MEASUREMENTS: Bone mineral densitometry was performed using the PO-MO System. Bone mineral density as measured about the Lumbar spine is: ----- L1-L4(G/cm2): 1.304 T Score Values are as follows: ----- L1: -0.2 ----- L2: -0.3 ----- L3: 1.4 ----- L4: 2.4 ----- L1-L4:1.0 Bone mineral density about the R hip (g/cm2): 0.828 Bone mineral density about the L hip (g/cm2): 0.882 T Score values are as follows: -----R Neck: -1.5 -----L Neck: -1.1 -----R Total: -0.6 -----L Total: -0.3 FRAX%s: The graph provided illustrates a 10.2% chance for a major osteoporotic fx and a 1.5% chance f or the hips probability for fx in 10 years time. IMPRESSION: Normal (Values between +1 and -1 indicate normal bone mass). Consider repeating this study in 5 year s or sooner if there is some new clinical indication. NOTE: T-SCORE=SD OF THE YOUNG ADULT MEAN.
--- NOTE | 2022-07-06 19:24 | MM ---
Reason for Exam: Screening (asymptomatic). Last mammogram was performed 1 year(s) and 1 month(s) ago. Patient History: Menarche at age 15. First Full-Term at age 25. Postmenopausal. Risk Values: Joan 5 year model risk: 1.5%. NCI Lifetime model risk: 4.5%. Prior Study Comparison: 10/21/2011 Bilateral Screening Mammogram, [facility]. 01/03/2017 Bilateral Screening Mammogram, [facility]. 02/12/2019 Bilateral Screening Mammogram, [facility]. 06/01/2021 Bilateral Screening Mammogram, [facility]. Tissue Density: The breast tissue is heterogeneously dense. This may lower the sensitivity of mammography. Findings: Analyzed By CAD. Multiple benign oil cyst calcifications redemonstrated. There is no suspicious group of microcalcifications or new suspicious mass in either breast. Overall Assessment: Benign, BI-RAD 2 Management: Screening Mammogram of both breasts in 1 year. 1. Patient should continue monthly self breast exams. 2. A clinical breast exam by your physician is recommended on an annual basis. 3. This exam should not preclude additional follow-up of suspicious palpable abnormalities. Electronically signed and approved by: Titus Baxter M.D. Radiologist
== END | disposition home or self-care (01) ==
LOC: RADMAMWWP 08:27
PROVIDERS: ATTEND Obstetrics & Gynecology
DX: Z12.31 Encounter for screening mammogram for malignant neoplasm of breast (principal); Z01.419 Encounter for gynecological examination (general) (routine) without abnormal findings; M85.89 Other specified disorders of bone density and structure, multiple sites; Z78.0 Asymptomatic menopausal state
CPT/HCPCS: 77063; 77067; 77080

== ENCOUNTER → 2023-08-29 | Outpatient (CLI) | payer MEDICARE ==
[2023-08-29 12:50] VITALS: BP 152/87; PULSE 64; RESP 16; TEMP 98.1
--- NOTE | 2023-08-29 13:15 | P.HPOB ---
History of Present Illness H&P Date: 08/29/23 Chief Complaint: The patient is here for her routine gynecologic exam and ma mmogram. This is a 73-year-old with an LMP of 2000. The patient continues to have vaginal dryness with intercourse and did not feel that the Premarin vaginal cream helps, so she discontinued it. She is declining any additional treatment. She is otherwise without gynecologic complaints. Review of Systems The patient's weight has been stable over the last year. She denies respiratory, cardiac, or G.I. problems. Past Medical History Past Medical History: Hypertension Additional Past Medical History / Comment(s): hemorrhoids. Seasonal allergies. 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 History of Any Multi-Drug Resistant Organisms: None Reported Past Surgical History: Section, Tubal Ligation Additional Past Surgical History / Comment(s): hemorrhoid banding. C-sections x2. Right rotator cuff surgery 2017. Colonoscopy 2021. Past Anesthesia/Blood Transfusion Reactions: No Reported Reaction Additional Past Anesthesia/Blood Transfusion Reaction / Comment(s): motion sickness as child Past Psychological History: Anxiety (PHQ-2 questionaire was given and she scores 0. This is a negative screen for depression.) Smoking Status: Never smoker Past Alcohol Use History: Rare (5 per year.) Past Drug Use History: None Reported Additional History: She has been since 1971 and is sexually active. 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 - Past Family History Mother Family Medical History: No Reported History Additional Family Medical History / Comment(s): Grandmother has diabetes. Medications and Allergies Home Medications Medication Instructions Recorded Confirmed Type Cholecalciferol [Vitamin D3 (25 1,000 unit PO DAILY 05/07/17 08/29/23 History Mcg = 1000 Iu)] Multivitamins, Thera [Multivitamin 1 tab PO DAILY 05/07/17 08/29/23 History (formulary)] Calcium Carb/Vitamin D3/Vit K1 1 tab PO AC-BID@0700,1300 08/03/17 08/29/23 History [Viactiv 650 mg-12.5 Mcg Chew] Cetirizine HCl [Zyrtec] 10 mg PO DAILY 12/23/19 08/29/23 History Losartan Potassium 100 mg PO DAILY 12/23/19 08/29/23 History Sertraline [Zoloft] 50 mg PO DAILY 06/01/21 08/29/23 History amLODIPine [Norvasc] 5 mg PO DAILY 06/01/21 08/29/23 History ALPRAZolam [Xanax] 0.25 mg PO Q8HR PRN 3 Days #12 tab 01/23/22 08/29/23 Rx Estrogens, Conjugated Cream 1 gram VAGINAL DIRECTED #42.5 gm 07/05/22 08/29/23 Rx [Premarin Vaginal Cream] Allergies Allergy/AdvReac Type Severity Reaction Status Date / Time codeine AdvReac Vomiting Verified 08/29/23 12:44 diphenhydramine AdvReac Itching Verified 08/29/23 12:44 [From Benadryl] hydromorphone [From Dilaudid] AdvReac Vomiting Verified 08/29/23 12:44 Exam Vital Signs Temp Pulse Resp BP Pulse Ox 08/29/23 12:45 98.1 F 64 16 152/87 98 Intake and Output 08/28/23 08/29/23 08/29/23 22:59 06:59 14:59 Other: Weight 59.874 kg Height 5 feet 0 inches, weight 132 pounds, BMI 25.8. This is a well-developed well-nourished white female who is alert and oriented times 3 in no acute distress. HEENT: Within normal limits. NECK: Supple without mass or thyromegaly. CHEST AND LUNGS: Clear to auscultation. HEART: Regular rate and rhythm. BREASTS: Are without mass or discharge. There is bilateral nipple inversion which the patient states she has had most of her life. AXILLARY EXAM: Negative for adenopathy. BACK: Negative for CVA tenderness. ABDOMEN: Soft, nontender, without palpable masses. PELVIC EXAM: Normal external genitalia with moderate atrophy. Cervix and vagina appear normal moderate atrophy. There is no unusual discharge. There is no evidence of prolapse. The uterus is midposition, nongravid size and nontender. There are no palpable adnexal masses or tenderness. RECTAL EXAM: Rectal exam was refused by the patient because of her hemorrhoids. EXTREMITIES: Nontender. IMPRESSION: 1. 73-year-old menopausal female with normal gynecologic exam. 2. Vaginal dryness secondary to atrophy which did not seem to improve with vaginal estrogen cream. She is declining any further treatment for this. PLAN: 1. Pap smears have been discontinued. 2. Self breast awareness was discussed with the patient. We have also discussed symptoms associated with inflammatory breast cancer. 3. Screening mammogram will be done today. 4. Osteoporosis prevention was discussed. I have stressed the importance of adequate calcium, vitamin D and regular exercise. Recommended amounts of calcium and vitamin D were also discussed. We will plan on repeating the bone density test in 1 year. 5. PHQ-2 questionaire was given and she scores 0. This is a negative screen for depression. 6. The patient was advised to return in 1-2 years for her well woman examination.
--- NOTE | 2023-08-30 21:26 | MM ---
Reason for Exam: Screening (asymptomatic). Last mammogram was performed 1 year(s) and 2 month(s) ago. Patient History: Menarche at age 15. First Full-Term at age 25. Postmenopausal. Risk Values: Joan 5 year model risk: 1.6%. NCI Lifetime model risk: 4.3%. Prior Study Comparison: 02/12/2019 Bilateral Screening Mammogram, [facility]. 06/01/2021 Bilateral Screening Mammogram, [facility]. 07/05/2022 Bilateral MG 3D screening mammo w/cad, [facility]. Tissue Density: The breast tissue is heterogeneously dense. This may lower the sensitivity of mammography. Findings: Analyzed By CAD. Benign bilateral oil cyst calcifications. There is no suspicious group of microcalcifications or new suspicious mass in either breast. Overall Assessment: Benign, BI-RAD 2 Management: Screening Mammogram of both breasts in 1 year. . Patient should continue monthly self-breast exams. A clinical breast exam by your physician is recommended on an annual basis. This exam should not preclude additional follow-up of suspicious palpable abnormalities. Note on Joan scores and lifetime risk: 1. A Joan score greater than 3% is considered moderate risk. If this is the case, consider specialist referral to assess eligibility for a risk reducing agent. 2. If overall lifetime risk for the development of breast cancer is 20% or higher, the patient may qualify for future screening with alternating mammogram and breast MRI. Electronically signed and approved by: Titus Baxter M.D. Radiologist
== END ==
LOC: WWCWWP 12:06
PROVIDERS: ATTEND Obstetrics & Gynecology
DX: Z12.31 Encounter for screening mammogram for malignant neoplasm of breast (principal); N89.8 Other specified noninflammatory disorders of vagina; I10 Essential (primary) hypertension; Z78.0 Asymptomatic menopausal state; Z87.19 Personal history of other diseases of the digestive system; Z88.5 Allergy status to narcotic agent; Z88.8 Allergy status to other drugs, medicaments and biological substances; Z79.899 Other long term (current) drug therapy
CPT/HCPCS: 77063; 77067

== ENCOUNTER → 2025-04-08 | Outpatient (CLI) | payer MEDICARE ==
[2025-04-08 09:28] VITALS: BP 148/76; PULSE 85; RESP 16; TEMP 97.3
--- NOTE | 2025-04-08 09:45 | P.HPOB ---
History of Present Illness H&P Date: 04/08/25 Chief Complaint: The patient is here for her routine gynecologic exam and ma mmogram. This is a 75-year-old G2, P2 with an LMP of 2000. The patient is without gynecologic complaints and denies any postmenopausal bleeding. Review of Systems The patient has gained 2 pounds over the last year. She denies respiratory, cardiac, or G.I. problems. Past Medical History Past Medical History: Hypertension Additional Past Medical History / Comment(s): hemorrhoids. Seasonal allergies. 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 History of Any Multi-Drug Resistant Organisms: None Reported Past Surgical History: Section, Tubal Ligation Additional Past Surgical History / Comment(s): hemorrhoid banding. C-sections x2. Right rotator cuff surgery 2018. Colonoscopy 2021. Past Anesthesia/Blood Transfusion Reactions: No Reported Reaction Additional Past Anesthesia/Blood Transfusion Reaction / Comment(s): motion sickness as child Past Psychological History: Anxiety Smoking Status: Never smoker Past Alcohol Use History: Rare (3 drinks per year.) Past Drug Use History: None Reported Additional History: She has been since 1971 and is sexually active. 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 - Past Family History Mother Family Medical History: No Reported History Additional Family Medical History / Comment(s): Grandmother has diabetes. Medications and Allergies Home Medications Medication Instructions Recorded Confirmed Type Cholecalciferol [Vitamin D3 (25 1,000 unit PO DAILY 05/07/17 04/08/25 History Mcg = 1000 Iu)] Multivitamins, Thera [Multivitamin 1 tab PO DAILY 05/07/17 04/08/25 History (formulary)] Calcium Carb/Vitamin D3/Vit K1 1 tab PO AC-BID@0700,1300 08/03/17 04/08/25 History [Viactiv 650 mg-12.5 Mcg Chew] Cetirizine HCl [Zyrtec] 10 mg PO DAILY 12/23/19 04/08/25 History Losartan Potassium 100 mg PO DAILY 12/23/19 04/08/25 History Sertraline [Zoloft] 50 mg PO DAILY 06/01/21 04/08/25 History amLODIPine [Norvasc] 5 mg PO DAILY 06/01/21 04/08/25 History ALPRAZolam [Xanax] 0.25 mg PO Q8HR PRN 3 Days #12 tab 01/23/22 04/08/25 Rx Allergies Allergy/AdvReac Type Severity Reaction Status Date / Time codeine AdvReac Vomiting Verified 08/29/23 12:44 diphenhydramine AdvReac Itching Verified 08/29/23 12:44 [From Benadryl] hydromorphone [From Dilaudid] AdvReac Vomiting Verified 08/29/23 12:44 Exam Vital Signs Temp Pulse Resp BP Pulse Ox 04/08/25 09:24 97.3 F L 85 16 148/76 99 Intake and Output 04/07/25 04/08/25 04/08/25 22:59 06:59 14:59 Other: Weight 60.781 kg Height 5 feet 0 inches, weight 134 pounds, BMI 26.2 This is a well-developed well-nourished white female who is alert and oriented times 3 in no acute distress. HEENT: Within normal limits. NECK: Supple without mass or thyromegaly. CHEST AND LUNGS: Clear to auscultation. HEART: Regular rate and rhythm. BREASTS: Are without mass or discharge. There is bilateral nipple inversion which the patient states she has had for many years. AXILLARY EXAM: Negative for adenopathy. BACK: Negative for CVA tenderness. ABDOMEN: Soft, nontender, without palpable masses. PELVIC EXAM: Normal external genitalia with mild to moderate atrophy. Cervix and vagina appear normal with mild to moderate atrophy. There is no unusual discharge. There is no evidence of prolapse. The uterus is midposition, nongravid size and nontender. There are no palpable adnexal masses or tenderness. RECTAL EXAM: Rectal exam was refused by the patient. EXTREMITIES: Nontender. IMPRESSION: 1. 75-year-old menopausal female with normal gynecologic exam. 2. History of osteopenia. PLAN: 1. Pap smears have been discontinued. 2. Self breast awareness was discussed with the patient. We have also discussed symptoms associated with inflammatory breast cancer. 3. Screening mammogram will be done today. 4. Osteoporosis prevention was discussed. I have stressed the importance of adequate calcium, vitamin D and regular exercise. Recommended amounts of calcium and vitamin D were also discussed. I have recommended repeating the bone density test and the order slip was given to the patient for this. 5. She was advised to return in one year for her annual well woman exam.
--- NOTE | 2025-04-08 12:35 | MM ---
Reason for Exam: Screening (asymptomatic). Last mammogram was performed 1 year(s) and 7 month(s) ago. Patient History: Menarche at age 15. First Full-Term at age 25. Postmenopausal. Risk Values: Joan 5 year model risk: 1.6%. NCI Lifetime model risk: 3.9%. Prior Study Comparison: 01/03/2017 Bilateral Screening Mammogram, [facility]. 02/12/2019 Bilateral Screening Mammogram, [facility]. 06/01/2021 Bilateral Screening Mammogram, [facility]. 07/05/2022 Bilateral MG 3D screening mammo w/cad, [facility]. 08/29/2023 Bilateral MG 3D screening mammo w/cad, [facility]. Tissue Density: There are scattered areas of fibroglandular density. Findings: Analyzed By CAD. Right breast: There is no suspicious group of microcalcifications or new suspicious mass. Benign-appearing calcifications right breast. Left breast: There is no suspicious group of microcalcifications or new suspicious mass. Benign-appearing calcifications left breast. Overall Assessment: Benign, BI-RAD 2 Management: Screening Mammogram of both breasts in [address] [facility] will attempt to contact patient to return for supplemental views and ultrasound if indicated. Patient should continue monthly self-breast exams. A clinical breast exam by your physician is recommended on an annual basis. This exam should not preclude additional follow-up of suspicious palpable abnormalities. Note on Joan scores and lifetime risk: 1. A Joan score greater than 3% is considered moderate risk. If this is the case, consider specialist referral to assess eligibility for a risk reducing agent. 2. If overall lifetime risk for the development of breast cancer is 20% or higher, the patient may qualify for future screening with alternating mammogram and breast MRI. [facility], , 04/08/2025 12:32 PM. Electronically signed and approved by: Fito Guthrie DO
== END ==
LOC: WWCWWP 09:04
PROVIDERS: ATTEND Obstetrics & Gynecology
DX: Z01.419 Encounter for gynecological examination (general) (routine) without abnormal findings (principal); Z12.31 Encounter for screening mammogram for malignant neoplasm of breast; M85.80 Other specified disorders of bone density and structure, unspecified site; Z78.0 Asymptomatic menopausal state; Z88.5 Allergy status to narcotic agent; Z88.8 Allergy status to other drugs, medicaments and biological substances
CPT/HCPCS: 77063; 77067